=== PATIENT | male | born 1960 | race Caucasian/White ===

== ENCOUNTER 2023-11-15 14:45 | Outpatient (OUT) | payer OTHER, SELFPAY ==
--- NOTE | 2023-11-15 14:52 | XR_ITS ---
The [address] [address] Patient Name: TRENT WOLFE MRN: [id number] date: 1960 Sex: M Assigned Patient Location: [facility] Current Patient Location: [facility] Accession/Order Number: [id number] Exam Date: 11/15/2023 15:13 Report Date: 11/15/2023 16:01 At the request of: REESE VALLEJO Procedure: XR lumbar spine min 4V EXAM: XR lumbar spine min 4V HISTORY: lumbar spine strain COMPARISON: None. TECHNIQUE: 5 views were performed. FINDINGS: Vertebral body heights appear normal. There is moderate multilevel disc space narrowing and osteophytic spurring consistent with degenerative changes. There is grade 1 anterolisthesis at L4-L5 which is likely degenerative in nature. Alignment otherwise appears normal. There is moderate to severe facet arthropathy at L4-L5 and L5-S1. There is no acute fracture or subluxation. Soft tissues appear unremarkable. XR/XR lumbar spine min 4V IMPRESSION: 1. No acute fracture or subluxation. 2. Degenerative changes as described above. 3. Likely degenerative grade 1 anterolisthesis at L4-L5. Electronically authenticated by: MAVERICK SANTOS Date: 11/15/2023 16:01
--- NOTE | 2023-11-15 14:57 | XR_ITS ---
The [address] [address] Patient Name: TRENT WOLFE MRN: [id number] date: 1960 Sex: M Assigned Patient Location: [facility] Current Patient Location: [facility] Accession/Order Number: [id number] Exam Date: 11/15/2023 15:13 Report Date: 11/15/2023 15:44 At the request of: REESE VALLEJO Procedure: XR knee LT 4V EXAM: XR knee LT 4V HISTORY: left knee sprain . The patient fell 2 days ago. COMPARISON: None. TECHNIQUE: 4 views of the left knee were obtained. FINDINGS: There is no evidence of an acute fracture or dislocation. There is mild to moderate narrowing of the medial compartment accompanied by small osteophytes. No osteochondral injury is identified. There is slight narrowing of the patellofemoral joint accompanied by small osteophytes. There is no evidence of a joint effusion. XR/XR knee LT 4V IMPRESSION: Some degenerative changes are present, as described. There is no evidence of an acute fracture or dislocation. There is no evidence of a joint effusion. Direct comparison with a previous study may be helpful in determining the chronicity of these findings. Electronically authenticated by: BEENA MICHAUD Date: 11/15/2023 15:44
== END 2023-11-15 14:46 | disposition home or self-care (01) ==
LOC: RAD 14:47
PROVIDERS: PCP Family Medicine; Visit Provider Nurse Practitioner Family
DX: M25.562 Pain in left knee (principal); S39.012A Strain of muscle, fascia and tendon of lower back, initial encounter
CPT/HCPCS: 72110; 73564

== ENCOUNTER 2023-12-07 06:34 | Outpatient (OUT) | payer OTHER, SELFPAY ==
--- NOTE | 2023-12-07 06:38 | MR_ITS ---
[place] [id number] Patient Name: TRENT WOLFE MRN: [id number] date: 1960 Sex: M Assigned Patient Location: MRI Current Patient Location: MRI Accession/Order Number: [id number] Exam Date: 12/07/2023 06:48 Report Date: 12/07/2023 09:23 At the request of: REESE VALLEJO Procedure: MR shoulder LT wo con EXAM: MR shoulder LT wo con HISTORY: Left Shoulder Strain COMPARISON: None. TECHNIQUE: MRI images obtained with multiple sequences. Noncontrast MRI of the left shoulder. FINDINGS: Normal alignment of the acromioclavicular joint. Subacromial subdeltoid bursal fluid, consistent with bursitis. Os acromiale. Full-thickness tear of the anterior supraspinatus tendon. The tear measures 1.2 cm in width. Minimal retraction measuring 0.8 cm. Infraspinatus is intact. Teres minor is intact. Subscapularis is intact. No labral detachment. No full-thickness chondral loss. Biceps tendon is intact and within the intertubercular groove. No left axillary adenopathy. MR/MR shoulder LT wo con IMPRESSION: 1. Full-thickness tear of the anterior supraspinatus tendon. The tear measures 1.2 cm in width. Minimal retraction measuring 0.8 cm. 2. Subacromial subdeltoid bursal fluid, consistent with bursitis. 3. No labral detachment. No full-thickness chondral loss. Electronically authenticated by: DONNA PEDERSEN Date: 12/07/2023 09:23
--- OUTSIDE RECORDS SUMMARY | 2023-12-07 06:39 | XMS_ITS | CCD ---
Author Name Unknown Address [address] [place] [address] [address] [place] [id number] Organization [facility] Care Team Providers Care Grid Inspector Name Role Phone REQUEST, DR ANNABELLA LISTED Admitting Unavaila ble REQUEST, DR WINCHESTER LISTED Attending Unavaila ble HOY, DR PICKERING Primary Care Unavailable REQUEST, DR WINCHESTER LISTED Consulting Unavaila ble Allergies Allergy Classification Reported Allergen(s) Allergy Type Date of Onset Reaction(s) Facility (1 source) Acetaminophen / oxyCODONE Drug Allergy 07-06-2013 [facility] (1 source) Erythromycin Drug Allergy 07-06-2013 [facility] (1 source) Ibuprofen Drug Allergy [facility] Encounters Encounter Date Encounter Type Care Provider Facility Start: 12-04-2022 End: 12-05-[address] WINCHESTER LISTED REQUEST Facility: Procedures Date Procedure Procedure Detail Performing Clinician Start: 12-04-[address] WINCHESTER L ISTED REQUEST Comment on above: Performed By: #### D ATPSA #### [facility] [address] [address] [address] Sera Mckenna Payers Date Payer Category Payer Self-pay [id number] Unknown [id number] Summary Purpose Family History No Family History Records Found Advance Directives No Advanced Directives Records Found Additional Source Comments (unrecognized sect ion and content) No Status Records Found INFORMATION SOURCE (unrecogn ized section and content) DATE CREATED AUTHOR 12/05/[address] [facility] FOR RECORDS PERTAINING TO PATIENTS WHO ARE OR HAVE BEEN ENROLLED IN A CHEMICAL DEPENDENCY/SUBSTANCEABUSE PROGRAM, SOME INFORMATION MAY BE OMITTED. This clinical summary was aggregated from multiple sources. Caution should be exercised in using it in the provision of clinical care. This summary normalizes information from multiple sources, and as a consequence, information in this document may materially change the coding, format and clinical context of patient data. In addition, data may be omitted in some cases. CLINICAL DECISIONS SHOULD BE BASED ON THE PRIMARY CLINICAL RECORDS. [employer] [facility]. provides no warranty or guarantee of the accuracy or completeness of information in this document.
== END 2023-12-07 06:35 | disposition home or self-care (01) ==
LOC: MRI 06:34
PROVIDERS: PCP Family Medicine; Visit Provider Nurse Practitioner Family
DX: M25.512 Pain in left shoulder (principal); S43.402A Unspecified sprain of left shoulder joint, initial encounter; M75.122 Complete rotator cuff tear or rupture of left shoulder, not specified as traumatic
CPT/HCPCS: 73221

== ENCOUNTER 2023-12-12 13:09 | Outpatient (RCR) | payer OTHER, SELFPAY | END 2024-01-17 13:27 | disposition home or self-care (01) | LOC: PT 13:09 | PROVIDERS: PCP Family Medicine; Visit Provider Nurse Practitioner Family | DX: S83.92XD Sprain of unspecified site of left knee, subsequent encounter (principal); S43.402D Unspecified sprain of left shoulder joint, subsequent encounter; S33.5XXD Sprain of ligaments of lumbar spine, subsequent encounter; M62.838 Other muscle spasm; S20.219D Contusion of unspecified front wall of thorax, subsequent encounter | CPT/HCPCS: 97110; 97161 ==

== ENCOUNTER 2025-02-12 09:11 | Inpatient (IN) | payer OTHER, SELFPAY ==
[2025-02-12] VITALS (32 sets, daily range): BP systolic 138–176; BP diastolic 77–127; PULSE 91–122; TEMP 37–37.6; O2SAT 89–94; BMI 30.1; BMI 30.8
--- OUTSIDE RECORDS SUMMARY | 2025-02-12 09:25 | XMS_ITS | CCD ---
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 Name Role Phone REQUEST, NONE LISTED Admitting Unavaila ble REQUEST, NONE LISTED Attending Unavaila juan PHILIPPE, DR PICKERING Primary Care Unavailable REQUEST, NONE LISTED Consulting Unavaila TARYN Mahan Referring Unavailable Emanuel Philippe MD Primary Care Provider [phone] Barrett Godfrey DO Attending Provider Emanuel Philippe MD Primary Care Provider [phone] Barrett Godfrey DO Attending Provider Barrett Godfrey Admitting Unavailable Barrett Godfrey Attending Unavailable Emanuel Philippe Primary Care Unavailable Barrett Godfrey Admitting Unavailable Barrett Godfrey Attending Unavailable Emanuel Philippe Primary Care Unavailable Barrett Godfrey Admitting Unavailable Barrett Godfrey Attending Unavailable Emanuel Philippe Primary Care Unavailable Barrett Godfrey Admitting Unavailable Barrett Godfrey Attending Unavailable Emanuel Philippe Primary Care Unavailable Albert Godfreyin Tu Admitting Unavailable Barrett Godfrey Attending Unavailable Emanuel Philippe Primary Care Unavailable Allergies Allergy Classification Reported Allergen(s) Allergy Type Date of Onset Reaction(s) Facility (1 source) Acetaminophen / oxyCODONE Drug Allergy 07-06-2013 [facility] Repository (5 sources) Erythromycin Drug Allergy 07-06-2013 [facility] Rep[facility] (1 source) Ibuprofen Drug Allergy [facility] Rep[facility] (5 sources) Ibuprofen; Translations: [ibuprofen] Drug Allergy 11-13-2024 [facility] (1 source) Erythromycin Drug Allergy 01-21-2025 [facility] Repository Medications Current Medications Medication Drug Class(es) Dates Sig (Normalized) Sig (Original) acetaminophen 500 mg oral tablet (1 source) Start: 01-20-2025 take 1 tablet by mouth every six hours as needed for pain Acetaminophen 500 mg tablet Active 500 MG PO Q6H as needed for Pain January 20, 2025 12:00am DO NOT RECONCILE UNTIL DOS 01/21/25 TO BE USED POST OP Calcium-Magnesium tablet (2 sources) Start: 01-15-2025 take 1 tablet by mouth once daily in the morning Calcium-Magnesium tablet Active 1 TAB PO Every morning January 15, 2025 12:00am docusate sodium 100 mg oral capsule (1 source) Start: 01-20-2025 take 1 capsule by mouth twice daily as needed for constipation Docusate Sodium (Colace) 100 mg capsule Active 100 MG PO Twice daily as needed for Constipation 17 08January 20, 2025 12:00am DO NOT RECONCILE UNTIL DOS 01/21/25 TO BE USED POST OP irbesartan 150 mg oral tablet (4 sources) Angiotensin 2 Receptor Allyn Start: 11-13-2024 take 1 tablet by mouth once daily in the morning Irbesartan 150 mg tablet Active 150 MG PO Every morning November 13, 2024 1:00am Ivermectin (2 sources) Antiparasitic, Pediculicide Start: 01-15-2025 ivermectin Active 1 TAB PO As Directed January 15, 2025 12:00am Start: 01-15-2025 ivermectin Act rupesh Daily January 15, 2025 12:00am oxyCODONE hydrochloride 5 mg oral tablet (1 source) Opioid Agonist Start: 01-20-2025 take 1 tablet by mouth every six hours as needed for pain Oxycodone 5 mg tablet Active 5 MG PO Q6H as needed for Pain 17 03January 20, 2025 DO NOT RECONCILE UNTIL DOS 01/21/25 TO BE USED POST OP tribulus hibiscus nettle root tea (2 sources) Start: 01-15-2025 take 1 dose by mouth twice daily tribulus hibiscus nettle root tea Active 1 DOSE PO Twice daily January 15, 2025 12:00am Problems Problem Classification Problem Date Documented Date Episodic/Chronic Essential hypertension (4 sources) Hypertensive disorder; Translations: [Essential (primary) hypertension] 11-13-2024 Chronic Other connective tissue disease (2 sources) Full thickness rotator cuff tear; Translations: [Complete rotator cuff tear or rupture of left shoulder, not specified as traumatic] 11-27-2024 Episodic Residual codes; unclassified (1 source) History of arthroscopic procedure on shoulder; Translations: [Other specified postprocedural states] 01-20-2025 Episodic Sprains and strains (20 sources) Supraspinatus tear; Translations: [Strain of muscle(s) and tendon(s) of the rotator cuff of left shoulder, initial encounter] Onset: 11-24-2024 11-13-2024 Episodic Results Test Name Value Interpretation Reference Range Facility Alanine aminotransferase [En zymatic activity/volume] in Serum or PlasmaOrdered By: Barrett Godfrey on 01-15-2025 ALT [Catalytic activity/Vol] Alanine aminotransferase [Enzymatic activity/volume] in Serum or Plasma 7-52 [facility] Albumin [Mass/volume] in Ser um or Plasma by Bromocresol green (BCG) dye binding methoOrdered By: Barrett Godfrey on 01-15-2025 Albumin BCG dye [Mass/Vol] Albumin [Mass/volume] in Serum or Plasma by Bromocresol green (BCG) dye binding metho 3.5-5.7 [facility] Alkaline phosphatase [Enzyma tic activity/volume] in Serum or PlasmaOrdered By: Barrett Godfrey on 01-15-2025 ALP [Catalytic activity/Vol] Alkaline phosphatase [Enzymatic activity/volume] in Serum or Plasma 34-104 [facility] Aspartate aminotransferase [ Enzymatic activity/volume] in Serum or PlasmaOrdered By: Barrett Godfrey on 01-15-2025 AST [Catalytic activity/Vol] Aspartate aminotransferase [Enzymatic activity/volume] in Serum or Plasma 13-39 [facility] Basophils Auto (Bld) [#/Vol] Ordered By: Barrett Godfrey on 01-15-2025 Basophils (Bld) [#/Vol] Automated basoph il count 0.0-0.2 [facility] Basophils/100 WBC Auto (Bld) Ordered By: Barrett Godfrey on 01-15-2025 Basophils/100 WBC (Bld) Automated basophil % . [facility] Bilirubin.total [Mass/volume ] in Serum or PlasmaOrdered By: Barrett Godfrey on 01-15-2025 Bilirubin [Mass/Vol] Bilirubin.total [Mass/volume] in Serum or Plasma 0.3-1.0 [facility] CMP with reflex to A1Con Albumin [Mass/Vol] 4.8 g/dL Normal 3.5-5.7 [facility] Comment on above: Performed By: #### C BC, CMP wRFX A1C #### [facility] [address] Albumin/Globulin [Mass ratio] 2.3 {ratio} Normal [facility] Comment on above: Performed By: #### C BC, CMP wRFX A1C #### [facility] [address] ALP [Catalytic activity/Vol] 39 U/L Normal 34-104 [facility] Comment on above: Result Comment: PERF ORMED BY: [place] [address] PATHOLOGIST [employer] ELADIO CARLSON M.D. Performed By: #### C BC, CMP wRFX A1C #### [address] ALT [Catalytic activity/Vol] 23 U/L Normal 7-52 [facility] Comment on above: Performed By: #### C BC, CMP wRFX A1C #### [facility] [address] [place] [id number] [facility] Anion gap [Moles/Vol] 11.5 mmol/L Normal 6.0-15.0 [facility] Comment on above: Performed By: #### C BC, CMP wRFX A1C #### [facility] [address] [place] [id number] [facility] AST [Catalytic activity/Vol] 23 U/L Normal 13-39 [facility] Comment on above: Performed By: #### C BC, CMP wRFX A1C #### [facility] [address] [place] [address] [facility] Bilirubin [Mass/Vol] 0.6 mg/dL Normal 0.3-1.0 [facility] Comment on above: Performed By: #### C BC, CMP wRFX A1C #### [address] Calcium [Mass/Vol] 9.2 mg/dL Normal 8.6-10.3 [facility] Comment on above: Performed By: #### C BC, CMP wRFX A1C #### [place] [address] [place] Chloride [Moles/Vol] 105 mmol/L Normal 98-107 [facility] Comment on above: Performed By: #### C BC, CMP wRFX A1C #### [address] CO2 [Moles/Vol] 26.0 mmol/L Normal 21.0-31.0 [facility] Comment on above: Performed By: #### C BC, CMP wRFX A1C #### [address] Creatinine [Mass/Vol] 0.86 mg/dL Normal 0.70-1.30 [facility] Comment on above: Performed By: #### C BC, CMP wRFX A1C #### [place] [address] [place] GFR/1.73 sq M.predicted MDRD (S/P/Bld) [Vol rate/Area] mL/min/{1.73_m2} Normal [facility] Comment on above: Performed By: #### C BC, CMP wRFX A1C #### [address] Globulin (S) [Mass/Vol] 2.1 g/dL Normal [facility] Comment on above: Performed By: #### C BC, CMP wRFX A1C #### [address] Glucose [Mass/Vol] 98 mg/dL Normal 70-100 [facility] Comment on above: Performed By: #### C BC, CMP wRFX A1C #### [place] [address] [place] Potassium [Moles/Vol] 4.5 mmol/L Normal 3.5-5.1 [facility] Comment on above: Performed By: #### C BC, CMP wRFX A1C #### [facility] [address] Protein [Mass/Vol] 6.9 g/dL Normal 6.4-8.9 [facility] Comment on above: Performed By: #### C BC, CMP wRFX A1C #### [address] Sodium [Moles/Vol] 138 mmol/L Normal 136-145 [facility] Comment on above: Performed By: #### C BC, CMP wRFX A1C #### [address] Urea nitrogen [Mass/Vol] 23 mg/dL Normal 7-25 [facility] Comment on above: Performed By: #### C BC, CMP wRFX A1C #### [address] Calcium [Mass/volume] in Ser um or PlasmaOrdered By: Barrett Godfrey on 01-15-2025 Calcium [Mass/Vol] Calcium [Mass/volume] in Serum or Plasma 8.6-10.3 [facility] Carbon dioxide, total [Moles /volume] in Serum or PlasmaOrdered By: Barrett Godfrey on 01-15-2025 CO2 [Moles/Vol] Carbon dioxide, total [Moles/volume] in Serum or Plasma 21.0-31.0 [facility] Chloride [Moles/volume] in S cody or PlasmaOrdered By: Barrett Godfrey on 01-15-2025 Chloride [Moles/Vol] Chloride [Moles/volume] in Serum or Plasma 98-107 [facility] Complete Blood Count Auto Di ffon 01-15-2025 Basophils (Bld) [#/Vol] 0.1 10*3/uL Normal 0.0-0.2 [facility] Comment on above: Result Comment: PERF ORMED BY: [place] [address] PATHOLOGIST [employer] ELADIO CARLSON M.D. Performed By: #### C BC, CMP wRFX A1C #### [address] Basophils/100 WBC (Bld) 1.3 % Normal . [facility] Comment on above: Performed By: #### C BC, CMP wRFX A1C #### [address] Eosinophils (Bld) [#/Vol] 0.2 10*3/uL Normal 0.0-0.45 [facility] Comment on above: Performed By: #### C BC, CMP wRFX A1C #### [address] Eosinophils/100 WBC (Bld) 2.6 % Normal . [facility] Comment on above: Performed By: #### C BC, CMP wRFX A1C #### [address] Erythrocyte distribution width (RBC) [Ratio] 13.4 % Normal 12.0-14.8 [facility] Comment on above: Performed By: #### C BC, CMP wRFX A1C #### [address] Hematocrit (Bld) [Volume fraction] 46.8 % Normal 38.8-50.0 [facility] Comment on above: Performed By: #### C BC, CMP wRFX A1C #### [address] Hemoglobin (Bld) [Mass/Vol] 16.1 g/dL Normal 13.0-17.0 [facility] Comment on above: Performed By: #### C BC, CMP wRFX A1C #### [address] Lymphocytes (Bld) [#/Vol] 1.7 10*3/uL Normal 1.00-4.8 [facility] Comment on above: Performed By: #### C BC, CMP wRFX A1C #### [facility] [address] [place] [address] [place] Lymphocytes/100 WBC (Bld) 28.2 % Normal . [facility] Comment on above: Performed By: #### C BC, CMP wRFX A1C #### [facility] [address] MCH (RBC) [Entitic mass] 31.8 pg Normal 27.5-35.2 [facility] Comment on above: Performed By: #### C BC, CMP wRFX A1C #### [facility] [address] MCV (RBC) [Entitic vol] 92.4 fL Normal 83.5-101 [facility] Comment on above: Performed By: #### C BC, CMP wRFX A1C #### [address] Mean Corpuscular HGB Conc 34.4 g/dL Normal 32.5-35.6 [facility] Comment on above: Performed By: #### C BC, CMP wRFX A1C #### [place] [address] [place] Monocytes (Bld) [#/Vol] 0.6 10*3/uL Normal 0.0-0.8 [facility] Comment on above: Performed By: #### C BC, CMP wRFX A1C #### [place] [address] [place] Monocytes/100 WBC (Bld) 10.2 % Normal . [facility] Comment on above: Performed By: #### C BC, CMP wRFX A1C #### [facility] [address] [place] [address] [place] Neutrophils (Bld) [#/Vol] 3.4 10*3/uL Normal 1.8-7.7 [facility] Comment on above: Performed By: #### C BC, CMP wRFX A1C #### [place] [address] [place] Neutrophils/100 WBC (Bld) 57.7 % Normal . [facility] Comment on above: Performed By: #### C BC, CMP wRFX A1C #### [facility] [address] NRBC% 0.1 /100{WBC} Normal 0-0.5 [facility] Comment on above: Performed By: #### C BC, CMP wRFX A1C #### [facility] [address] Platelet mean volume (Bld) [Entitic vol] 8.3 fL Normal 6.6-10.1 [facility] Comment on above: Performed By: #### C BC, CMP wRFX A1C #### [facility] [address] [place] [address] [place] Platelets (Bld) [#/Vol] 177 10*3/uL Normal 150-450 [facility] Comment on above: Performed By: #### C BC, CMP wRFX A1C #### [facility] [address] [place] [address] [place] RBC (Bld) [#/Vol] 5.07 10*6/uL Normal 3.90-5.60 [facility] Comment on above: Performed By: #### C BC, CMP wRFX A1C #### [facility] [address] [place] [address] WBC (Bld) [#/Vol] 6.0 10*3/uL Normal 4.1-10.5 [facility] Comment on above: Performed By: #### C BC, CMP wRFX A1C #### [place] [address] [place] Creatinine [Mass/volume] in Serum or PlasmaOrdered By: Barrett Godfrey on 01-15-2025 Creatinine [Mass/Vol] Creatinine [Mass/volume] in Serum or Plasma 0.70-1.30 [facility] ECG 12 lead ECGon 01-15-2025 ECG 12 lead ECG [facility] Main [place] [address] [place] [address] Electrocardiograph Report Signed Patient: Darien Wilcox MR#: [id number] : 1960 Acct:[id number] Age/Sex: 64 / M ADM Date: 01/15/25 Loc: PS Room: Type: [facility] Attending Dr: Barrett Godfrey DO Ordering Provider: Barrett Godfrey DO Date of Service: 01/15/25 ECG/ECG 12 lead ECG: Pre op Copies to: Test Reason : Blood Pressure : */* mmHG Vent. Rate : 79 BPM Atrial Rate : 79 BPM P-R Int : 170 ms QRS Dur : 94 ms QT Int : 368 ms P-R-T Axes : 44 32 34 degrees QTcB Int : 421 ms Normal sinus rhythm Normal ECG No previous ECGs available Confirmed by SIMON SAWANT MD ([id number]) on 01/15/2025 11:00:40 AM Referred By: Electronically Signed By: SIMON SAWANT MD Transcribed By: MUS Signed By Simon Sawant MD 0 01/15/25 1100 Normal [facility] Eosinophils Auto (Bld) [#/Vo l]Ordered By: Barrett Godfrey on 01-15-2025 Eosinophils (Bld) [#/Vol] Automated eosinophil count 0.0-0.45 [facility] Eosinophils/100 WBC Auto (Bl d)Ordered By: Barrett Godfrey on 01-15-2025 Eosinophils/100 WBC (Bld) Automated eosinophil % . [facility] Erythrocyte distribution wid th Auto (RBC) [Ratio]Ordered By: Barrett Godfrey on 01-15-2025 Erythrocyte distribution width (RBC) [Ratio] Erythrocyte distribution width [Ratio] by Automated count 12.0-14.8 [facility] Globulin Calc (S) [Mass/Vol] Ordered By: Barrett Godfrey on 01-15-2025 Globulin (S) [Mass/Vol] Serum globulin measurement by calculation (mass/volume) [facility] Glucose [Mass/volume] in Ser um or PlasmaOrdered By: Barrett Godfrey on 01-15-2025 Glucose [Mass/Vol] Glucose [Mass/volume] in Serum or Plasma 70-100 [facility] Hematocrit Auto (Bld) [Volum e fraction]Ordered By: Barrett Godfrey on 01-15-2025 Hematocrit (Bld) [Volume fraction] Hematocrit [Volume Fraction] of Blood by Automated count 38.8-50.0 [facility] Hemoglobin [Mass/volume] in BloodOrdered By: Barrett Godfrey on 01-15-2025 Hemoglobin (Bld) [Mass/Vol] Hemoglobin [Mass/volume] in Blood 13.0-17.0 [facility] Leukocytes [#/volume] correc lianne for nucleated erythrocytes in Blood by Automated counOrdered By: Barrett Godfrey on 01-15-2025 WBC corrected for nucl RBC Auto (Bld) [#/Vol] Leukocytes [#/volume] corrected for nucleated erythrocytes in Blood by Automated coun 4.1-10.5 [facility] Lymphocytes Auto (Bld) [#/Vo l]Ordered By: Barrett Godfrey on 01-15-2025 Lymphocytes (Bld) [#/Vol] Lymphocytes [#/volume] in Blood by Automated count 1.00-4.8 [facility] Lymphocytes/100 WBC Auto (Bl d)Ordered By: Barrett Godfrey on 01-15-2025 Lymphocytes/100 WBC (Bld) Lymphocytes/100 leukocytes in Blood by Automated count . [facility] MCH Auto (RBC) [Entitic mass ]Ordered By: Barrett Godfrey on 01-15-2025 MCH (RBC) [Entitic mass] MCH [Entitic ma ss] by Automated count 27.5-35.2 [facility] MCHC Auto (RBC) [Mass/Vol]Or dered By: Barrett Godfrey on 01-15-2025 MCHC (RBC) [Mass/Vol] MCHC [Mass/volume] by Automated count 32.5-35.6 [facility] MCV Auto (RBC) [Entitic vol] Ordered By: Barrett Godfrey on 01-15-2025 MCV (RBC) [Entitic vol] MCV [Entitic vol ume] by Automated count 83.5-101 [facility] Monocytes Auto (Bld) [#/Vol] Ordered By: Barrett Godfrey on 01-15-2025 Monocytes (Bld) [#/Vol] Automated blood monocyte count 0.0-0.8 [facility] Monocytes/100 WBC Auto (Bld) Ordered By: Barrett Godfrey on 01-15-2025 Monocytes/100 WBC (Bld) Automated monocyte % . [facility] Neutrophils Auto (Bld) [#/Vo l]Ordered By: Barrett Godfrey on 01-15-2025 Neutrophils (Bld) [#/Vol] Neutrophils [#/volume] in Blood by Automated count 1.8-7.7 [facility] Neutrophils/100 WBC Auto (Bl d)Ordered By: Barrett Godfrey on 01-15-2025 Neutrophils/100 WBC (Bld) Automated neutrophil % . [facility] No Panel InformationOrdered By: Barrett Godfrey on 01-15-2025 Estimated GFR (CKD-EPI) > 60.0 mL/Min [facility] Creatinine Clearance (Chem N/A [facility] Nucleated erythrocytes [Pres ence] in Blood by Automated countOrdered By: Barrett Godfrey on 01-15-2025 Nucleated RBC Auto Ql (Bld) Nucleated erythrocytes [Presence] in Blood by Automated count 0-0.5 [facility] Platelet mean volume Auto (B ld) [Entitic vol]Ordered By: Barrett Godfrey on 01-15-2025 Platelet mean volume (Bld) [Entitic vol] Platelet mean volume [Entitic volume] in Blood by Automated count 6.6-10.1 [facility] Platelets Auto (Bld) [#/Vol] Ordered By: Barrett Godfrey on 01-15-2025 Platelets (Bld) [#/Vol] Platelets [#/vol ume] in Blood by Automated count 150-450 [facility] Potassium [Moles/volume] in Serum or PlasmaOrdered By: Barrett Godfrey on 01-15-2025 Potassium [Moles/Vol] Potassium [Moles/volume] in Serum or Plasma 3.5-5.1 [facility] Protein [Mass/volume] in Ser um or PlasmaOrdered By: Barrett Godfrey on 01-15-2025 Protein [Mass/Vol] Protein [Mass/volume] in Serum or Plasma 6.4-8.9 [facility] RBC Auto (Bld) [#/Vol]Ordere d By: Barrett Godfrey on 01-15-2025 RBC (Bld) [#/Vol] Erythrocytes [#/volume] in Blood by Automated count 3.90-5.60 [facility] Serum or plasma albumin/glob ulin mass ratioOrdered By: Barrett Godfrey on 01-15-2025 Albumin/Globulin [Mass ratio] Serum or plasma albumin/globulin mass ratio [facility] Serum or plasma anion gap de terminationOrdered By: Barrett Godfrey on 01-15-2025 Anion gap [Moles/Vol] Serum or plasma anion gap determination 6.0-15.0 [facility] Sodium [Moles/volume] in Ser um or PlasmaOrdered By: Barrett Godfrey on 01-15-2025 Sodium [Moles/Vol] Sodium [Moles/volume] in Serum or Plasma 136-145 [facility] Urea nitrogen [Mass/volume] in Serum or PlasmaOrdered By: Barrett Godfrey on 01-15-2025 Urea nitrogen [Mass/Vol] Urea nitrogen [Mass/volume] in Serum or Plasma 7-25 [facility] WBC Auto (Bld) [#/Vol]Ordere d By: Barrett Godfrey on 01-15-2025 WBC (Bld) [#/Vol] Leukocytes [#/volume] in Blood by Automated count 4.1-10.5 [facility] MR shoulder LT wo conon 10-30 [place] [address] MRI Report Signed Patient: Darien Wilcox MR#: [id number] : 1960 Acct:[id number] Age/Sex: 64 / M ADM Date: 11/24/24 Loc: [facility] Room: Type: [facility] Attending Dr: Barrett Godfrey DO Copies to: Barrett Godfrey DO Ordering Provider: Barrett Godfrey DO Date of Service: 11/24/24 MR/MR shoulder LT wo con: S46.012A - Strain of muscle(s) and tendon(s) of the rotat... EXAMINATION: MRI OF THE LEFT SHOULDER CLINICAL HISTORY: Muscle strain. COMPARISON: Left shoulder series 11/13/2024 TECHNIQUE: Multiecho, multiplanar imaging was performed with use of an extremity coil. No contrast was administered. FINDINGS: Bones/Joints: Minimal joint fluid. Subacromial/subdelto id bursitis. Inferior glenohumeral ligament appears unremarkable. Mild degenerative changes of the AC joint. Mild degenerative changes of the glenohumeral joint. No bone marrow edema or fracture is noted. Labrum: No definitive tear is noted. Biceps tendon: Situated within the bicipital groove with small amount of surrounding fluid. No biceps tendon tear is seen. The tendon appears to be seen to the level of the labrum. Supraspinatus: Full-thickness tear involving the anterior fibers of the musculotendinous junction approximately 1 cm from the greater tubercle with associated tendinosis. There appears to be atrophy of the supraspinatus suggestive of a chronic process. Infraspinatus: Normal Teres Minor: Normal Subscapularis: Normal MR/MR shoulder LT wo con IMPRESSION: MINIMAL JOINT FLUID WITH SUBACROMIAL/SUBDELTO ID BURSITIS AND MILD DEGENERATIVE CHANGES OF THE AC AND GLENOHUMERAL JOINTS. THERE APPEARS TO BE A FULL-THICKNESS TEAR OF THE ANTERIOR SUPRASPINATUS TENDON AT THE LEVEL OF THE MUSCULOTENDINOUS JUNCTION APPROXIMATELY 1 CM FROM THE GREATER TUBERCLE. THERE IS ASSOCIATED MUSCLE ATROPHY AND TENDINOSIS SUGGESTING A CHRONIC PROCESS. Impression dictated by: Rojas Jama Jr., D.OGalo11/24/2024 3:34 PM Dictation Location: [place] [address] Transcribed By: [facility] 11/24/24 1534 Dictated By: Rojas Jama Jr, DO 11/24/24 1529 Signed By: 11/24/24 1534 Normal [facility] Magnetic resonance imaging r eportOrdered By: Rojas Jama on 11-24-2024 Study report [facility] [place] [address] MRI Report Signed Patient: Darien Wilcox MR#: [id number] : 1960 Acct:[id number] Age/Sex: 64 / M ADM Date: 5 Loc: [facility] Room: Type: [facility] Attending Dr: Barrett Godfrey DO Copies to: Barrett Godfrey DO~ Ordering Provider: Barrett Godfrey DO Date of Service: 11/24/24 MR/MR shoulder LT wo con: S46.012A - Strain of muscle(s) and tendon(s) of the rotat... EXAMINATION: MRI OF THE LEFT SHOULDER CLINICAL HISTORY: Muscle strain. COMPARISON: Left shoulder series 11/13/2024 TECHNIQUE: Multiecho, multiplanar imaging was performed with use of an extremity coil. No contrast was administered. FINDINGS: Bones/Joints: Minimal joint fluid. Subacromial/subdelto id bursitis. Inferior glenohumeral ligament appears unremarkable. Mild degenerative changes of the ACjoint. Mild degenerative changes of the glenohumeral joint. No bone marrow edema or fracture is noted. Labrum: No definitive tear is noted. Biceps tendon: Situated within the bicipital groove with small amount of surrounding fluid. No biceps tendon tear is seen. The tendon appears to be seen to the level of the labrum. Supraspinatus: Full-thickness tear involving the anterior fibers of the musculotendinous junction approximately 1 cm from the greater tubercle with associated tendinosis. There appears to be atrophy of the supraspinatus suggestive of a chronic process. Infraspinatus: Normal Teres Minor: Normal Subscapularis: Normal MR/MR shoulder LT wo con IMPRESSION: MINIMAL JOINT FLUID WITH SUBACROMIAL/SUBDELTO ID BURSITIS AND MILD DEGENERATIVE CHANGES OF THE AC AND GLENOHUMERAL JOINTS. THERE APPEARS TO BE A FULL-THICKNESS TEAR OF THE ANTERIOR SUPRASPINATUS TENDON AT THE LEVEL OF THE MUSCULOTENDINOUS JUNCTION APPROXIMATELY 1 CM FROM THE GREATER TUBERCLE. THERE IS ASSOCIATED MUSCLE ATROPHY AND TENDINOSIS SUGGESTING A CHRONIC PROCESS. Impression dictated by: Rojas Jama Jr., D.OGalo11/24/2024 3:34 PM Dictation Location: [place] [address] Transcribed By: [facility] 11/24/24 1534 Dictated By: Rojas Jama Jr, DO 11/24/24 1529 Signed By: 11/24/24 1534 [facility] X-ray reportOrdered By: Tyshawn Jama on 11-13-2024 Study report [facility] [address] [place] [address] XRay Report Signed Patient: Darien Wilcox MR#: [id number] : 1960 Acct:[id number] Age/Sex: 64 / M ADM Date: 5 Loc: [facility] Room: Type: [facility] CLI Attending Dr: Barrett Godfrey DO Copies to: Barrett Godfrey DO~ Ordering Provider: Barrett Godfrey DO Date of Service: 11/13/24 XR/XR shoulder LT min 2V*: S46.012A - Strain of muscle(s) and tendon(s) of the rotat... LEFT SHOULDER - - 4 views CLINICAL HISTORY: Left shoulder pain for one month. COMPARISON: None FINDINGS: Mild degenerative changes of the AC and glenohumeral joints without acute bony process. XR/XR shoulder LT min 2V* IMPRESSION: MILD DEGENERATIVE CHANGES OF THE LEFT SHOULDER WITHOUT ACUTE BONY PROCESS. Impression dictated by: Rojas Jama Jr., D.OGalo11/13/2024 3:42 PM Dictation Location: [place] [address] Transcribed By: [facility] 11/13/24 1542 Dictated By: Rojas Jama Jr, DO 11/13/24 1541 Signed By: 11/13/24 1542 [facility] XR shoulder LT min 2V*on XR shoulder LT min 2V* [facility] [address] [place] [id number] XRay Report Signed Patient: Darien Wilcox MR#: [id number] : 1960 Acct:[id number] Age/Sex: 64 / M ADM Date: 11/13/24 Loc: [facility] Room: Type: [facility] CLI Attending Dr: Barrett Godfrey DO Copies to: Barrett Godfrey DO Ordering Provider: Barrett Godfrey DO Date of Service: 11/13/24 XR/XR shoulder LT min 2V*: S46.012A - Strain of muscle(s) and tendon(s) of the rotat... LEFT SHOULDER - - 4 views CLINICAL HISTORY: Left shoulder pain for one month. COMPARISON: None FINDINGS: Mild degenerative changes of the AC and glenohumeral joints without acute bony process. XR/XR shoulder LT min 2V* IMPRESSION: MILD DEGENERATIVE CHANGES OF THE LEFT SHOULDER WITHOUT ACUTE BONY PROCESS. Impression dictated by: Rojas Jama Jr., DGaloOGalo11/13/2024 3:42 PM Dictation Location: [place] [address] Transcribed By: [facility] 11/13/24 1542 Dictated By: Rojas Jama Jr, DO 11/13/24 1541 Signed By: 11/13/24 1542 Normal [facility] XR SHOULDER LT MIN 2 VWSon 1 12-01-2023 XR SHOULDER LT MIN 2 VWS XR SHOULDER LT MIN 2 VWS XR SHOULDER LT MIN 2 VWS Clinical history:Left shoulder pain, unspecified chronicity Comparison: None. Findings: Acromioclavicular and glenohumeral joint degenerative change. No acute processes fracture or dislocation. Impression: Degenerative change without evidence of acute osseous abnormality. Finalized by Frank Choudhary MD on 09/30/2024 5:12 PM Normal [facility] Vital Signs Date Time Vital Sign Value Performing Clinician Alcirai keisha 01-21-2025 13:40-0400 Diastolic blood pressure 78 mm[Hg] Emanuel Philippe MD Work Phone: [facility] 01-21-2025 13:40-0400 Heart rate 88 /min Emanuel Philippe MD Work Phone: [facility] 01-21-2025 13:40-0400 Respiratory rate 16 /min Emanuel Philippe MD Work Phone: [facility] 01-21-2025 13:40-0400 SaO2% (BldA) [Mass fraction] 96 % Emanuel Philippe MD Work Phone: [facility] 01-21-2025 13:40-0400 Systolic blood pressure 138 mm[Hg] Emanuel Philippe MD Work Phone: [facility] 01-21-2025 12:04-0400 Body temperature 97.7 [degF] Emanuel Philippe MD Work Phone: [facility] 01-21-2025 12:04-0400 Inhaled oxygen flow rate 8 L/min Emanuel Philippe MD Work Phone: [facility] 01-21-2025 09:04-0400 Body height 177.8 cm Emanuel Pihlippe MD Work Phone: [facility] 01-21-2025 09:04-0400 Body weight 95.25 kg Emanuel Philippe MD Work Phone: [facility] 01-15-2025 09:16-0400 Body height 177.8 cm Emanuel Philippe MD Work Phone: [facility] 01-15-2025 09:16-0400 Body mass index (BMI) [Ratio] 29.7 kg/m2 Emanuel Philippe MD Work Phone: [facility] 01-15-2025 09:16-0400 Body weight 93.89 kg Emanuel Philippe MD Work Phone: [facility] 11-13-2024 10:30-0500 Body height 179.07 cm Emanuel Philippe MD Work Phone: [facility] 11-13-2024 10:30-0500 Body mass index (BMI) [Ratio] 29.2 kg/m2 Emanuel Philippe MD Work Phone: [facility] 11-13-2024 10:30-0500 Body weight 93.89 kg Emanuel Philippe MD Work Phone: [facility] Encounters Encounter Date Encounter Type Care Provider Facility Start: 01-23-2025 ambulatory Barrett Godfrey Facility :[facility] Start: 01-21-2025 Non-patient / Non-visit Tanna Philippe MD Work Phone: [facility] Work Phone: Start: 01-21-2025 End: 01-21-2025 Admission to same day surgery center Emanuel Philippe MD Work Phone: [facility] [place] Start: 01-21-2025 End: 01-21-2025 ambulatory Emanuel Philippe MD Work Phone: [facility] Work Phone: Start: 01-15-2025 End: 01-15-2025 Encounter for other preprocedural examination Emanuel Philippe MD Work Phone: [facility] Start: 01-15-2025 End: 01-15-2025 Patient encounter procedure Emanuel Philippe MD Work Phone: [facility] Work Phone: Start: 01-15-2025 End: 01-15-2025 Patient encounter procedure Emanuel Philippe MD Work Phone: [facility]Pre-Surgical Testing Work Phone: Start: 01-15-2025 End: 01-15-2025 ambulatory Emanuel Philippe MD Work Phone: [facility] Work Phone: Start: 01-15-2025 Encounter for preprocedural laboratory examination Barrett Godfrey [facility] Start: 01-14-2025 Patient encounter status Rogers Philippe MD Work Phone: [facility] Start: 12-18-2024 End: 12-18-2024 Patient encounter procedure Emanuel Philippe MD Work Phone: [facility] Work Phone: Start: 11-24-2024 End: 11-24-2024 ambulatory Emanuel Philippe MD Work Phone: [facility] Work Phone: Start: 11-24-2024 End: 11-24-2024 Patient encounter procedure Emanuel Philippe MD Work Phone: [facility] [address] [facility] Work Phone: Start: 11-13-2024 End: 11-13-2024 ambulatory Emanuel Philippe MD Work Phone: [facility] Work Phone: Start: 11-13-2024 End: 11-13-2024 Patient encounter procedure Emanuel Philippe MD Work Phone: [facility] Work Phone: Start: 09-30-2024 ambulatory TARYN PHAMYORDY [facility] Start: 12-04-2022 End: 12-05-[address] WINCHESTER LISTED REQUEST Facility: Procedures Date Procedure Procedure Detail Performing Clinician Start: 01-21-2025 OR Shoulder Scope RCR/Biceps Tendon (Left) Emanuel Philippe MD Work Phone: Start: 11-24-2024 MRI of left shoulder Do veronica Philippe MD Work Phone: Start: 11-13-2024 Plain X-ray of left shoulder Emanuel Philippe MD Work Phone: Start: 12-04-[address] WINCHESTER L ISTED REQUEST Comment on above: Performed By: #### D ATPSA #### [facility] [address] [place] [address] Dr. Sera Mckenna History of appendectomy History of appendectomy Emanuel Philippe MD Work Phone: History of operative procedure on knee History of medial meniscus repair of right knee Emanuel Philippe MD Work Phone: History of repair of musculotendinous cuff of shoulder History of repair of right rotator cuff Emanuel Philippe MD Work Phone: Plan of Treatment Date Care Activity Detail Author Start: 01-21-2025 End: 01-21-2025 [facility] MR Shoulder - left W O contrast [facility] Patient Education Know your Meds [facility] Work Phone: Payers Date Payer Category Payer Unknown [id number] 2024 Self-pay 1959 Self-pay [id number] Unknown [id number] Unknown [id number] [id number] Unknown [id number] 2.16.8 [id number] Unknown [id number] 2.16.8 [id number] Unknown [id number] 2.16.8 [id number] Unknown [id number] 2.16.8 [id number] Social History Date Type Detail Facility Tobacco smoking stat us NHIS Unknown if ever smoked [facility] Work Phone: Start: 11-14-2024 End: 01-21-2025 Sex Male (finding) [facility] Start: 1960 Sex Assigned At Male F [facility] Start: 11-25-2024 Sex Patient sex un known (finding) [facility] Start: 01-15-2025 End: 01-21-2025 Tobacco smoking status NHIS Current some day smoker [facility] Goals Date Patient Goal Desired Activity /State Evaluation note 11-13-2024 Note Date & Type Note Facility 11-13-2024 Evaluation note Diagnosis Onset Date Resolution Rupture of left supraspinatus tendon acute October 10:06am Unspecified sprain of left shoulder joint, initial encounter acute November 13, 2024 10:06am [facility] Work Phone: Evaluation note 11-13-2024 Note Date & Type Note Facility 11-13-2024 Evaluation note Diagnosis Onset Date Resolution Rupture of left supraspinatus tendon acute October 10:06am Unspecified sprain of left shoulder joint, initial encounter acute November 13, 2024 10:06am Rupture of left supraspinatus tendon acute December 182024 12:49pm Unspecified sprain of left shoulder joint, initial encounter acute December 18, 2024 12:49pm Pre-op exam acute January 15, 025 9:08am Rupture of left supraspinatus tendon acute January 15, 2025 9:08am Unspecified sprain of left shoulder joint, initial encounter acute January 15 9:08am [facility] Work Phone: Hospital Discharge instructions Note Date & Type Note Facility Hospital Discharge instructions Additional Instructions POSTOPERATIVE INSTRUCTIONS FOR ROTATOR CUFF REPAIR Barrett Godfrey DO Orthopedic Surgeon [facility] GENERAL INSTRUCTIONS: Use ice packs to the shoulder as much as you can tolerate (30 minutes on/30 minutes off) over the first 48-72 hours post-operatively. DO NOT apply ice directly to the skin. Always place a towel between the ice pack and skin. Low grade temperatures are common after surgery. Please notify the office if your temperature exceeds 101.5 degrees Fahrenheit. DO NOT make critical decisions or sign legal papers for the first 24 hours after surgery or while taking pain medication. MEDICATIONS AND DIET: You may resume all pre-operative medications unless otherwise specified. Only take pain medication as prescribed, as needed. We encourage ambulation to help prevent blood clots from developing in your legs You should take pain medication with food. It is not uncommon to have nausea or an upset stomach after surgery. Medication refills require a 48 hour notice; no exceptions will be made. NO REFILLS will be authorized over the weekend. Do not take extra Tylenol while taking prescription pain medication unless otherwise specified. If you have a reaction to your medications, stop taking them and call the office immediately. If you develop a significant rash, or have trouble breathing, call 911 or go immediately to the nearest emergency room. ACTIVITY: Your operative extremity is in shoulder sling. Please wear this as all times. You may remove this for bathing purposes. You may also come out of the sling 2-3 times per day to perform gentle pendulum exercises as well as gentle movement of your elbow. Do not actively move your shoulder otherwise. Wear the sling while sleeping at night . You are non-weightbearing on your operative arm. DRESSING/BANDAGES: Your surgical bandage may show some drainage over the first 24-48 hours following surgery. Keep steri-strips intact if they are present If your bandage becomes saturated, please notify the office. Your shoulder dressing is to be left on for the first 72 hours after surgery. On the third day after surgery, you may remove your dressing and cover with band-aids as needed DO NOT soak the incision. You may shower once the bandage is off. Allow water to wash over the incisions. Do not scrub the area DO NOT submerge the incision in a bath, hot tub, swimming pool, or any other body of water for the first 4 weeks following surgery. FOLLOW UP: Your first post-operative appointment should already be scheduled for you. If you do not already have a post-operative appointment, our office will contact you to schedule one. You should be seen in the office two weeks following your surgery unless otherwise specified. If you notice any increasing swelling, wound redness, or drainage, please contact our office immediately. Barrett Godfrey DO Orthopedic Surgeon [facility] Office: [address] [place] [id number] Office number: [phone] [facility] Work Phone: Summary Purpose Family History No Family History Records Found Relationship Condition Age at Onset Recorded Date/T shannon Not Specified Adopted Unknown Unknown family medical history Unknown Advance Directives No Advanced Directives Records Found Advance Directive Response Recorded Date/ Time Advance Directives No November 11, 2024 11:22am Advance Directive Response Recorded Date/ Time Advance Directives No January 13 025 12:51pm Chief Complaint and Reason for Visit Chief Complaint Admit Date [facility] DOI 09/30/24 LT SHOULDER INJURY 2024 10:06am S46.012A S42.402A November 13, 2024 1 0:44am Reason for Visit Admit Date Rupture of left supraspinatus tendon Oct 2024 10:06am Unspecified sprain of left s houlder joint, initial encounter November 13, 2024 10:06am Chief Complaint Admit Date [facility] DOI 09/30/24 LT SHOULDER INJURY 2024 10:06am S46.012A S42.402A November 13, 2024 1 0:44am S46.012A November 24, 2024 1 2:54pm Chief Complaint Admit Date [facility] DOI 09/30/24 LT SHOULDER INJURY 2024 10:06am S46.012A S42.402A November 13, 2024 1 0:44am S46.012A November 24, 2024 1 2:54pm MRI RESULTS [facility] December 18, 2024 12:49pm Shoulder pain January 15, 2025 8:0 7am [facility] & P LEFT SHOULDER ARTHROSCOPY 01-21-25 January 15, 2025 9:08am Reason for Visit Admit Date Rupture of left supraspinatus tendon Sudheer uary 2024 10:06am Unspecified sprain of left s houlder joint, initial encounter November 13, 2024 10:06am Rupture of left supraspinatus tendon Feb ruary 2024 12:49pm Unspecified sprain of left s houlder joint, initial encounter December 18, 2024 12:49pm Pre-op exam January 15, 2025 9:0 8am Rupture of left supraspinatus tendon Mar 2024 9:08am Unspecified sprain of left s houlder joint, initial encounter January 15, 2025 9:08am Chief Complaint Admit Date [facility] DOI 09/30/24 LT SHOULDER INJURY Janua ry 2024 10:06am S46.012A S42.402A November 13, 2024 1 0:44am S46.012A November 24, 2024 1 2:54pm MRI RESULTS [facility] December 18, 2024 12:49pm Shoulder pain January 15, 2025 8:0 7am H & P LEFT SHOULDER ARTHROSCOPY 01-21-25 January 15, 2025 9:08am Shoulder pain January 21, 2025 8:3 7am Shoulder pain January 21, 2025 12: 22pm Additional Source Comments (unrecognized sect ion and content) No Status Records FoundNo Status Records FoundNo Status Records Found INFORMATION SOURCE (unrecogn ized section and content) DATE CREATED AUTHOR 12/05/[address] [facility] DATE CREATED AUTHOR AUTHOR'S ORGANIZ ATION 10/02/2024 [facility] DATE CREATED AUTHOR AUTHOR'S ORGANIZ ATION 02/01/2025 [facility] Care Teams (unrecognized sec tion and content) Team Status: Active Member Role Status Dates Emanuel Philippe MD Primary Care Provider Active Team Status: Inactive Member Role Status Dates Emanuel Philippe MD Primary Care Provider Active Start: November 13, 2024 End: November 13, 2024 Barrett Godfrey DO Attending Provider Active St art: November 13, 2024 End: November 13, 2024 Team Status: Inactive Member Role Status Dates Emanuel Philippe MD Primary Care Provider Active Start: November 24, 2024 End: November 24, 2024 Barrett Godfrey DO Attending Provider Active St art: November 24, 2024 End: November 24, 2024 Team Status: Inactive Member Role Status Dates Emanuel Philippe MD Primary Care Provider Active Start: December 18, 2024 End: December 18, 2024 Barrett Godfrey DO Attending Provider Active St art: December 18, 2024 End: December 18, 2024 Team Status: Inactive Member Role Status Dates Emanuel Philippe MD Primary Care Provider Active Start: January 15, 2025 End: January 15, 2025 Barrett Godfrey DO Attending Provider Active St art: January 15, 2025 End: January 15, 2025 Team Status: Inactive Member Role Status Sergei Philippe MD Primary Care Provider Active Start: January 21, 2025 End: January 21, 2025 Barrett Godfrey DO Attending Provider Active St art: January 21, 2025 End: January 21, 2025 Team Status: Active Member Role Status Sergei Philippe MD Primary Care Provider Active Start: January 21, 2025 Barrett Godfrey DO Attending Provider, Other Provider Active Start: January 21, 2025 Goals (unrecognized section and content) Goals may be documented in a n alternate sectionGoals may be documented in an alternate sectionGoals may be documented in an alternate section FOR RECORDS PERTAINING TO PATIENTS WHO ARE [...] BE BASED ON THE PRIMARY CLINICAL RECORDS. [facility] [employer] [facility]. provides no warranty or guarantee of the accuracy or completeness of information in this document.
--- NOTE | 2025-02-12 09:39 | ECG_ITS ---
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 Measurements Intervals [place] Rate: 97 P: 27 VT: 168 QRS: 22 QRSD: 92 T: 38 QT: 334 QTc: 388 Interpretive Statements 1100 Sinus rhythm 9110 normal ECG No previous ECG available for comparison Electronically Signed On 02-12-2025 17:12:58 EDT by KATHERINE GUADALUPE M.D.
--- NOTE | 2025-02-12 09:40 | XR_ITS ---
The [address] [address] Patient Name: TRENT WOLFE MRN: [id number] date: 1960 Sex: M Assigned Patient Location: ER Current Patient Location: ER Accession/Order Number: [id number] Exam Date: 02/12/2025 10:20 Report Date: 02/12/2025 10:23 At the request of: CHESTER DAUGHERTY MD Procedure: XR chest 1V PORTABLE AP ERECT CHEST 22 hours CLINICAL HISTORY: Right-sided chest pain for the past few days with deep inspiration. COMPARISON: None There is shallow inspiration. There is bibasilar parenchymal change, likely atelectasis, left greater than right. There is no additional consolidation. Pleural effusions are not excluded without a lateral view. No pneumothorax is seen. The heart is not well-visualized though is probably not significantly enlarged. The bony structures are intact. XR/XR chest 1V IMPRESSION: SHALLOW INSPIRATION WITH BIBASILAR PARENCHYMAL CHANGE, GREATER ON THE LEFT. Impression dictated by: Faina Trotter M.D.02/12/2025 10:23 AM Dictation Location: [place] [address] Electronically authenticated by: [id number] Y Date: 02/12/2025 10:23
[2025-02-12 09:45] LABS: Basophils Absolute Auto 0.1 10^3/uL (0.0-0.1); Basophils Percent Auto 0.4 % (0.2-2.0); Eosinophils Percent Auto 0.3 % (0.9-7.0); Hematocrit 47.2 % (42.0-54.0); Hemoglobin 16.1 g/dL (14.0-18.0); Immature Granulocytes Abs Auto 0.04 10^3/uL (0.00-0.03); Immature Granulocytes Pct Auto 0.3 % (0.0-0.5); Lymphocytes Absolute Auto 1.5 10^3/uL (1.2-3.8); Lymphocytes Percent Auto 12.3 % (20.5-60.0); Mean Corpuscular HGB Conc 34.1 g/dL (29.9-35.2); Mean Corpuscular Hemoglobin 31.6 pg (25.9-34.0); Mean Corpuscular Volume 92.7 fL (80.0-94.0); Mean Platelet Volume 9.7 fL (9.5-13.5); Monocytes Absolute Auto 1.3 10^3/uL (0.3-0.8); Monocytes Percent Auto 10.9 % (1.7-12.0); Neutrophils Absolute Auto 9.3 10^3/uL (1.4-6.5); Neutrophils Percent Auto 75.8 % (43.0-75.0); Platelet Count 218 10^3/uL (150-450); Red Blood Count 5.09 10^6/uL (4.70-6.10); Red Cell Distribution Width 12.3 % (11.0-15.0); White Blood Count 12.3 10^3/uL (4.0-11.0)
--- NOTE | 2025-02-12 09:46 | ED_ITS ---
HPI HPI - General Adult General Chief complaint: Chest Pain Stated complaint: CHEST PAINS Time Seen by Provider: 02/12/25 09:34 Source: patient Mode of arrival: walk-in History of Present Illness HPI narrative: 64-year-old male presents for a chief complaint of chest pains. He states that it started on the right lower lateral posterior rib region and now is wrapping towards the front on the right side. No trauma or injury but 3 weeks ago he had left rotator cuff repair. He does not have substernal pain. He feels a bit short of breath and he has never had a DVT or PE previously. He is not on any blood thinners. The pain is intermittent. Related Data Home Medications ?Medication ?Instructions ?Recorded ?Confirmed irbesartan 150 mg tablet 150 mg PO DAILY 02/12/25 02/12/25 Allergies Allergy/AdvReac Type Severity Reaction Status Date / Time erythromycin base Allergy Hives Verified 02/12/25 09:16 ibuprofen Allergy Hives Verified 02/12/25 09:16 Opioid HPI Opioid Management Most Recent Opioid Data: No Data to Display Review of Systems ROS Narrative A ten point review of systems is negative except as noted above. PFSH [facility] Medical History (Updated 02/12/25 @ 11:05 by Raheem Mondragon MD) Hypertension ?I10 - Essential (primary) hypertension (ICD-10) Surgical History (Updated 02/12/25 @ 11:03 by Jaquelin Tatum RN) H/O shoulder surgery ?Z98.890 - Other specified postprocedural states (ICD-10) Social History Little interest or pleasure in doing things: not at all Feeling down, depressed, or hopeless: not at all Exam Narrative Exam Narrative: Nurses note and vital signs reviewed and patient is not hypoxic. General: The patient appears well and in no apparent distress. Patient is resting comfortably on cart. Skin: Warm, dry, no pallor noted. There is no rash noted. Head: Normocephalic, atraumatic Eye: Normal conjunctiva, no drainage Ears, Nose, Mouth, and Throat: oral mucosa is moist. Nares patent. Cardiovascular: Regular Rate and Rhythm, borderline tachycardia Respiratory: Patient is in no distress, no accessory muscle use, lungs are clear to auscultation, no wheezing, rales or rhonchi; breath sounds are Back: non-tender GI: Soft and nontender Musculoskeletal: The patient has no evidence of calf tenderness, no pitting edema, symmetrical pulses noted bilaterally Neurological: A&O, normal speech Psychiatric: Cooperative Constitutional Vital Signs, click to edit/add: Last Vital Signs Temp 98.6 F 02/12/25 09:16 Pulse 99 H 02/12/25 11:18 Resp 25 H 02/12/25 11:18 BP 166/77 H 02/12/25 11:18 Pulse Ox 92 L 02/12/25 11:18 O2 Del Method Room Air 02/12/25 09:16 Course Vital Signs Vital signs: Vital Signs Temperature 98.6 F 02/12/25 09:16 Pulse Rate 100 H 02/12/25 09:16 Respiratory Rate 20 02/12/25 09:16 Pulse Oximetry 94 L 02/12/25 09:16 Oxygen Delivery Method Room Air 02/12/25 09:16 Temperature 98.6 F 02/12/25 09:16 Pulse Rate 99 H 02/12/25 11:18 Respiratory Rate 25 H 02/12/25 11:18 Blood Pressure 166/77 H 02/12/25 11:18 Pulse Oximetry 92 L 02/12/25 11:18 Oxygen Delivery Method Room Air 02/12/25 09:16 Medical Decision Making MDM Narrative Medical decision making narrative: Pulmonary embolism is identified on the CAT scan, without heart strain. O2 sats are in the lower 90% range and heart rate is in the lower 90s as well. He was started on IV heparin and will be admitted. He is hemodynamically stable. Treatment diagnosis and disposition were discussed with the patient and his . Differential Diagnosis Differential Diagnosis: Pulmonary embolism, pneumonia, pneumothorax, muscle strain Lab Data Lab results reviewed: Yes I reviewed the patient's lab results Labs: Lab Results 02/12/25 Range/Units 09:20 WBC 12.3 H (4.0-11.0) 10^3/uL RBC 5.09 (4.70-6.10) 10^6/uL Hgb 16.1 (14.0-18.0) g/dL Hct 47.2 (42.0-54.0) % MCV 92.7 (80.0-94.0) fL MCH 31.6 (25.9-34.0) pg MCHC 34.1 (29.9-35.2) g/dL RDW 12.3 (11.0-15.0) % Plt Count 218 (150-450) 10^3/uL MPV 9.7 (9.5-13.5) fL Neut % (Auto) 75.8 H (43.0-75.0) % Lymph % (Auto) 12.3 L (20.5-60.0) % [place] % (Auto) 10.9 (1.7-12.0) % Eos % (Auto) 0.3 L (0.9-7.0) % Baso % (Auto) 0.4 (0.2-2.0) % Neut # (Auto) 9.3 H (1.4-6.5) 10^3/uL Lymph # (Auto) 1.5 (1.2-3.8) 10^3/uL [place] # (Auto) 1.3 H (0.3-0.8) 10^3/uL Eos # (Auto) 0.0 (0.0-0.7) 10^3/uL Baso # (Auto) 0.1 (0.0-0.1) 10^3/uL Abs Immat Gran (auto) 0.04 H (0.00-0.03) 10^3/uL Imm/Tot Granulo (auto) 0.3 (0.0-0.5) % PT 10.7 (9.0-11.6) sec INR 1.01 APTT 30.4 (22.3-36.2) sec Sodium 135 L (136-145) mmol/L Potassium 4.1 (3.5-5.1) mmol/L Chloride 100 (98-107) mmol/L Carbon Dioxide 27.7 (21.0-32.0) mmol/L Anion Gap 11.4 BUN 18.0 (7.0-18.0) mg/dL Creatinine 0.94 (0.70-1.30) mg/dL Est GFR ( Amer) >60 (>=60 mL/min/1.73m^2) Est GFR (Non-Af Amer) >60 (>=60 mL/min/1.73m^2) BUN/Creatinine Ratio 19.1 Glucose 109 H (74-106) mg/dL Calcium 9.7 (8.5-10.1) mg/dL Troponin I High Sens <4.0 L (4.0-76.1) pg/mL Imaging Data Chest x-ray: Radiologist's impression: ITS Impressions Chest X-Ray 02/12/25 09:40 IMPRESSION: SHALLOW INSPIRATION WITH BIBASILAR PARENCHYMAL CHANGE, GREATER ON THE LEFT. Impression dictated by: Faina Trotter M.D.02/12/2025 10:23 AM Dictation Location: [facility] Electronically authenticated by: [id number] Y Date: 02/12/2025 10:23 Chest CTA 02/12/25 10:06 IMPRESSION: RIGHT-SIDED PULMONARY EMBOLI. BIBASILAR PARENCHYMAL CHANGES, RIGHT GREATER THAN LEFT. Comment: Findings were discussed with Dr. Mondragon at 1058 hours Impression dictated by: Faina Trotter M.D.02/12/2025 10:59 AM Dictation Location: [facility] Electronically authenticated by: [id number] Y Date: 02/12/2025 10:59 ECG Data Attestation: I personally reviewed and interpreted this ECG as follows: (EKG on my interpretation shows sinus rhythm with a rate of 97 and no acute change.) Critical Care Time Critical Care Time Critical Care Time: Yes Total Critical Care Time: 35 Attestation: Due to the high probability of sudden and clinically significant deterioration in the patient's condition he/she required the highest level of my preparedness to intervene urgently I provided critical care time including documentation time, medication orders and management, reevaluation, vital sign assessment, ordering and reviewing of lab tests, ordering and reviewing of x-ray studies, and admission orders. Aggregate critical care time is 35 minutes including only time during which I was engaged in work directly related to his/her care and did not include time spent treating other patients simultaneously. Discharge Plan Discharge Chief Complaint: Chest Pain Clinical Impression: Pulmonary embolism Patient Disposition: Admitted As Inpatient Time of Disposition Decision: 11:05 Condition: Fair
[2025-02-12 09:59] LABS: Anion Gap 11.4; BUN Creatinine Ratio 19.1; Calcium 9.7 mg/dL (8.5-10.1); Carbon Dioxide 27.7 mmol/L (21.0-32.0); Chloride 100 mmol/L (98-107); Estimated GFR (African America >60 (>=60 mL/min/1.73m^2); Estimated GFR (Non-African Ame >60 (>=60 mL/min/1.73m^2); Glucose 109 mg/dL (74-106); Potassium 4.1 mmol/L (3.5-5.1); Sodium 135 mmol/L (136-145)
[2025-02-12 10:00] LABS: Troponin I High Sensitivity <4.0 pg/mL (4.0-76.1)
--- NOTE | 2025-02-12 10:06 | CT_ITS ---
The [address] [address] Patient Name: TRENT WOLFE MRN: [id number] date: 1960 Sex: M Assigned Patient Location: ER Current Patient Location: ER Accession/Order Number: [id number] Exam Date: 02/12/2025 10:48 Report Date: 02/12/2025 10:59 At the request of: CHESTER DAUGHERTY MD Procedure: CT angio chest CT PULMONARY ANGIOGRAM WITH CONTRAST CLINICAL HISTORY: Short of breath and right-sided chest pain. Recent surgery 3 weeks ago. COMPARISON: None TECHNIQUE: Spiral images were obtained through the chest following intravenous administration of 100 mL of Omnipaque 350. Images were reviewed using both narrow and wide window settings. Sagittal, coronal and 3 D volume-rendered reconstructions were performed and reviewed. This CT exam was performed using one or more following dose reduction techniques: Automated exposure control, adjustment of the mA and/or kV according to patient size, or use of iterative reconstruction technique. FINDINGS: The heart is top normal in size. There is no pericardial effusion. No aortic aneurysm or dissection is seen. There is adequate opacification of the pulmonary arteries. There are distal right main as well as segmental and some subsegmental pulmonary emboli involving all lobes. No pathologic lymphadenopathy is seen. There are calcified subcarinal granulomas. Dextroscoliotic curvature and endplate spurring are seen at the spine. No pleural effusion or pneumothorax is identified. There is atelectasis at the left lower lobe and lingula. There is mild consolidation at the right posterior costophrenic angle with some air bronchograms. Limited cuts through the upper abdomen show hepatic hypodensities that may be cysts. CT/CT angio chest IMPRESSION: RIGHT-SIDED PULMONARY EMBOLI. BIBASILAR PARENCHYMAL CHANGES, RIGHT GREATER THAN LEFT. Comment: Findings were discussed with Dr. Daugherty at 1058 hours Impression dictated by: Faina Trotter M.D.02/12/2025 10:59 AM Dictation Location: [place] [address] Electronically authenticated by: [id number] Y Date: 02/12/2025 10:59
[2025-02-12 11:17] LABS: INR 1.01; Partial Thromboplastin Time 30.4 sec (22.3-36.2); Prothrombin Time 10.7 sec (9.0-11.6)
[2025-02-12] MEDS: HEPARIN SODIUM,PORCINE/D5W 25,000 UNIT/500 ML IV.SOLN 30 UNIT IV (11:36)
[2025-02-12] MEDS: HEPARIN SODIUM (PORCINE) 5,000 UNIT/ML VIAL 6600 UNIT IV (11:36)
--- OUTSIDE RECORDS SUMMARY | 2025-02-12 12:16 | XMS_ITS | CCD ---
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 Role Phone REQUEST, NONE LISTED Admitting Unavaila ble REQUEST, NONE LISTED Attending Unavaila juan PHILIPPE, DR PICKERING Primary Care Unavailable REQUEST, NONE LISTED Consulting Unavaila TARYN Mahan Referring Unavailable Emanuel Philippe MD Primary Care Provider [phone] Barrett Godfrey DO Attending Provider [phone] Emanuel Philippe MD Primary Care Provider [phone] Barrett Godfrey DO Attending Provider Barrett Godfrey [...] Acetaminophen / oxyCODONE Drug Allergy 07-06-2013 [facility] Repository (5 sources) Erythromycin Drug Allergy 07-06-2013 [facility] Repository (1 source) Ibuprofen Drug Allergy [facility] Repository (5 sources) Ibuprofen; Translations: [ibuprofen] Drug Allergy 11-13-2024 [facility] (1 source) Erythromycin Drug Allergy 01-21-2025 [facility] Repository Medications Current Medications Medication Drug Class(es) [...] [Enzymatic activity/volume] in Serum or Plasma 7-52 [facility] Albumin [Mass/volume] in Ser um or Plasma by Bromocresol green (BCG) dye binding methoOrdered By: Barrett Godfrey on 01-15-2025 Albumin BCG dye [Mass/Vol] Albumin [Mass/volume] in Serum or Plasma by Bromocresol green (BCG) dye binding metho 3.5-5.7 [facility] Alkaline phosphatase [Enzyma tic activity/volume] in Serum or PlasmaOrdered By: Barrett Godfrey on 01-15-2025 ALP [Catalytic activity/Vol] Alkaline phosphatase [Enzymatic activity/volume] in Serum or Plasma 34-104 [facility] Aspartate aminotransferase [ Enzymatic activity/volume] in Serum or PlasmaOrdered By: Barrett Godfrey on 01-15-2025 AST [Catalytic activity/Vol] Aspartate aminotransferase [Enzymatic activity/volume] in Serum or Plasma 13-39 [facility] Basophils Auto (Bld) [#/Vol] Ordered By: Barrett Godfrey on 01-15-2025 Basophils (Bld) [#/Vol] Automated basoph il count 0.0-0.2 [facility] Basophils/100 WBC Auto (Bld) Ordered By: Barrett Godfrey on 01-15-2025 Basophils/100 WBC (Bld) Automated basophil % . [facility] Bilirubin.total [Mass/volume ] in Serum or PlasmaOrdered By: Barrett Godfrey on 01-15-2025 Bilirubin [Mass/Vol] Bilirubin.total [Mass/volume] in Serum or Plasma 0.3-1.0 [facility] CMP with reflex to A1Con Albumin [Mass/Vol] 4.8 g/dL Normal 3.5-5.7 [facility] Comment on above: Performed By: #### C BC, CMP wRFX A1C #### [facility] [address] Albumin/Globulin [Mass ratio] 2.3 {ratio} Normal [facility] Comment on above: Performed By: #### C BC, CMP wRFX A1C #### [facility] [address] ALP [Catalytic activity/Vol] 39 U/L Normal 34-104 [facility] Comment on above: Result Comment: PERF ORMED BY: [place] [address] PATHOLOGIST IT CONSULTANT ELADIO CARLSON M.D. Performed By: #### C BC, CMP wRFX A1C #### [address] ALT [Catalytic activity/Vol] 23 U/L Normal 7-52 [facility] Comment on above: Performed By: #### C BC, CMP wRFX A1C #### [facility] [address] [place] [id number] [facility] Anion gap [Moles/Vol] 11.5 mmol/L Normal 6.0-15.0 [facility] e [facility] Comment on above: Performed By: #### C BC, CMP wRFX A1C #### [facility] [address] [place] [id number] [facility] AST [Catalytic activity/Vol] 23 U/L Normal 13-39 [facility] Comment on above: Performed By: #### C BC, CMP wRFX A1C #### [facility] [address] [place] [address] [facility] Bilirubin [Mass/Vol] 0.6 mg/dL Normal 0.3-1.0 [facility] Comment on above: Performed By: #### C BC, CMP wRFX A1C #### [address] Calcium [Mass/Vol] 9.2 mg/dL Normal 8.6-10.3 [facility] Comment on above: Performed By: #### C BC, CMP wRFX A1C #### [place] [address] [place] Chloride [Moles/Vol] 105 mmol/L Normal 98-107 [facility] Comment on above: Performed By: #### C BC, CMP wRFX A1C #### [address] CO2 [Moles/Vol] 26.0 mmol/L Normal 21.0-31.0 The [facility] Comment on above: Performed By: #### C BC, CMP wRFX A1C #### [address] Creatinine [Mass/Vol] 0.86 mg/dL Normal 0.70-1.30 [facility] Comment on above: Performed By: #### C BC, CMP wRFX A1C #### [place] [address] [place] GFR/1.73 sq M.predicted MDRD (S/P/Bld) [Vol rate/Area] mL/min/{1.73_m2} Normal [facility] Comment on above: Performed By: #### C BC, CMP wRFX A1C #### [address] Globulin (S) [Mass/Vol] 2.1 g/dL Normal [facility] Comment on above: Performed By: #### C BC, CMP wRFX A1C #### [address] Glucose [Mass/Vol] 98 mg/dL Normal 70-100 [facility] Comment on above: Performed By: #### C BC, CMP wRFX A1C #### [place] [address] [place] Potassium [Moles/Vol] 4.5 mmol/L Normal 3.5-5.1 [facility] Comment on above: Performed By: #### C BC, CMP wRFX A1C #### [facility] [address] Protein [Mass/Vol] 6.9 g/dL Normal 6.4-8.9 [facility] Comment on above: Performed By: #### C BC, CMP wRFX A1C #### [address] Sodium [Moles/Vol] 138 mmol/L Normal 136-145 [facility] Comment on above: Performed By: #### C BC, CMP wRFX A1C #### [address] Urea nitrogen [Mass/Vol] 23 mg/dL Normal 7-25 [facility] Comment on above: Performed By: #### C BC, CMP wRFX A1C #### [address] Calcium [Mass/volume] in Ser um or PlasmaOrdered By: Barrett Godfrey on 01-15-2025 Calcium [Mass/Vol] Calcium [Mass/volume] in Serum or Plasma 8.6-10.3 [facility] Carbon dioxide, total [Moles /volume] in Serum or PlasmaOrdered By: Barrett Godfrey on 01-15-2025 CO2 [Moles/Vol] Carbon dioxide, total [Moles/volume] in Serum or Plasma 21.0-31.0 [facility] Chloride [Moles/volume] in S cody or PlasmaOrdered By: Barrett Godfrey on 01-15-2025 Chloride [Moles/Vol] Chloride [Moles/volume] in Serum or Plasma 98-107 [facility] Complete Blood Count Auto Di ffon 01-15-2025 Basophils (Bld) [#/Vol] 0.1 10*3/uL Normal 0.0-0.2 [facility] Comment on above: Result Comment: PERF ORMED BY: [place] [address] PATHOLOGIST IT CONSULTANT ELADIO CARLSON M.D. Performed By: #### C BC, CMP wRFX A1C #### [address] Basophils/100 WBC (Bld) 1.3 % Normal . [facility] Comment on above: Performed By: #### C BC, CMP wRFX A1C #### [address] Eosinophils (Bld) [#/Vol] 0.2 10*3/uL Normal 0.0-0.45 [facility] Comment on above: Performed By: #### C BC, CMP wRFX A1C #### [address] Eosinophils/100 WBC (Bld) 2.6 % Normal . [facility] Comment on above: Performed By: #### C BC, CMP wRFX A1C #### [address] Erythrocyte distribution width (RBC) [Ratio] 13.4 % Normal 12.0-14.[address] [facility] Comment on above: Performed By: #### C BC, CMP wRFX A1C #### [address] Hematocrit (Bld) [Volume fraction] 46.8 % Normal 38.8-50.0 [facility] Comment on above: Performed By: #### C BC, CMP wRFX A1C #### [address] Hemoglobin (Bld) [Mass/Vol] 16.1 g/dL Normal 13.0-17.0 [facility] Comment on above: Performed By: #### C BC, CMP wRFX A1C #### [address] Lymphocytes (Bld) [#/Vol] 1.7 10*3/uL Normal 1.00-4.8 [facility] Comment on above: Performed By: #### C BC, CMP wRFX A1C #### [facility] [address] [place] [address] [place] Lymphocytes/100 WBC (Bld) 28.2 % Normal . [facility] Comment on above: Performed By: #### C BC, CMP wRFX A1C #### [facility] [address] MCH (RBC) [Entitic mass] 31.8 pg Normal 27.5-35.2 [facility] Comment on above: Performed By: #### C BC, CMP wRFX A1C #### [facility] [address] MCV (RBC) [Entitic vol] 92.4 fL Normal 83.5-101 [facility] Comment on above: Performed By: #### C BC, CMP wRFX A1C #### [address] Mean Corpuscular HGB Conc 34.4 g/dL Normal 32.5-35.6 [facility] Comment on above: Performed By: #### C BC, CMP wRFX A1C #### [place] [address] [place] Monocytes (Bld) [#/Vol] 0.6 10*3/uL Normal 0.0-0.8 [facility] Comment on above: Performed By: #### C BC, CMP wRFX A1C #### [place] [address] [place] Monocytes/100 WBC (Bld) 10.2 % Normal . [facility] Comment on above: Performed By: #### C BC, CMP wRFX A1C #### [facility] [address] [place] [address] [place] Neutrophils (Bld) [#/Vol] 3.4 10*3/uL Normal 1.8-7.7 [facility] Comment on above: Performed By: #### C BC, CMP wRFX A1C #### [place] [address] [place] Neutrophils/100 WBC (Bld) 57.7 % Normal . [facility] Comment on above: Performed By: #### C BC, CMP wRFX A1C #### [facility] [address] NRBC% 0.1 /100{WBC} Normal 0-0.5 The [facility] Comment on above: Performed By: #### C BC, CMP wRFX A1C #### [facility] [address] Platelet mean volume (Bld) [Entitic vol] 8.3 fL Normal 6.6-10.[address] [facility] Comment on above: Performed By: #### C BC, CMP wRFX A1C #### [facility] [address] [place] [address] [place] Platelets (Bld) [#/Vol] 177 10*3/uL Normal 150-450 [facility] Comment on above: Performed By: #### C BC, CMP wRFX A1C #### [facility] [address] [place] [address] [place] RBC (Bld) [#/Vol] 5.07 10*6/uL Normal 3.90-5.60 The [facility] Comment on above: Performed By: #### C BC, CMP wRFX A1C #### [facility] [address] [place] [address] WBC (Bld) [#/Vol] 6.0 10*3/uL Normal 4.1-10.5 [facility] Comment on above: Performed By: #### C BC, CMP wRFX A1C #### [place] [address] [place] Creatinine [Mass/volume] in Serum or PlasmaOrdered By: Barrett Godfrey on 01-15-2025 Creatinine [Mass/Vol] Creatinine [Mass/volume] in Serum or Plasma 0.70-1.30 [facility] ECG 12 lead ECGon 01-15-2025 ECG 12 lead ECG [facility] [place] [address] [place] [address] Electrocardiograph Report Signed Patient: Darien Wilcox MR#: [id number] : 1960 Acct:[id number] Age/Sex: 64 / M ADM Date: 01/15/25 Loc: PS Room: Type: [facility] Attending Dr: Barrett Godfrey DO Ordering Provider: [...] MD 0 01/15/25 1100 Normal [facility] Eosinophils Auto (Bld) [#/Vo l]Ordered By: Barrett Godfrey on 01-15-2025 Eosinophils (Bld) [#/Vol] Automated eosinophil count 0.0-0.45 [facility] Eosinophils/100 WBC Auto (Bl d)Ordered By: Barrett Godfrey on 01-15-2025 Eosinophils/100 WBC (Bld) Automated eosinophil % . [facility] Erythrocyte distribution wid th Auto (RBC) [Ratio]Ordered By: Barrett Godfrey on 01-15-2025 Erythrocyte distribution width (RBC) [Ratio] Erythrocyte distribution width [Ratio] by Automated count 12.0-14.8 [facility] Globulin Calc (S) [Mass/Vol] Ordered By: Barrett Godfrey on 01-15-2025 Globulin (S) [Mass/Vol] Serum globulin measurement by calculation (mass/volume) [facility] Glucose [Mass/volume] in Ser um or PlasmaOrdered By: Barrett Godfrey on 01-15-2025 Glucose [Mass/Vol] Glucose [Mass/volume] in Serum or Plasma 70-100 [facility] Hematocrit Auto (Bld) [Volum e fraction]Ordered By: Barrett Godfrey on 01-15-2025 Hematocrit (Bld) [Volume fraction] Hematocrit [Volume Fraction] of Blood by Automated count 38.8-50.0 [facility] Hemoglobin [Mass/volume] in BloodOrdered By: Barrett Godfrey on 01-15-2025 Hemoglobin (Bld) [Mass/Vol] Hemoglobin [Mass/volume] in Blood 13.0-17.0 [facility] Leukocytes [#/volume] correc lianne for nucleated erythrocytes in Blood by Automated counOrdered By: Barrett Godfrey on 01-15-2025 WBC corrected for nucl RBC Auto (Bld) [#/Vol] Leukocytes [#/volume] corrected for nucleated erythrocytes in Blood by Automated coun 4.1-10.5 [facility] Lymphocytes Auto (Bld) [#/Vo l]Ordered By: Barrett Godfrey on 01-15-2025 Lymphocytes (Bld) [#/Vol] Lymphocytes [#/volume] in Blood by Automated count 1.00-4.8 [facility] Lymphocytes/100 WBC Auto (Bl d)Ordered By: Barrett Godfrey on 01-15-2025 Lymphocytes/100 WBC (Bld) Lymphocytes/100 leukocytes in Blood by Automated count . [facility] MCH Auto (RBC) [Entitic mass ]Ordered By: Barrett Godfrey on 01-15-2025 MCH (RBC) [Entitic mass] MCH [Entitic ma ss] by Automated count 27.5-35.2 [facility] MCHC Auto (RBC) [Mass/Vol]Or dered By: Barrett Godfrey on 01-15-2025 MCHC (RBC) [Mass/Vol] MCHC [Mass/volume] by Automated count 32.5-35.6 [facility] MCV Auto (RBC) [Entitic vol] Ordered By: Barrett Godfrey on 01-15-2025 MCV (RBC) [Entitic vol] MCV [Entitic vol ume] by Automated count 83.5-101 [facility] Monocytes Auto (Bld) [#/Vol] Ordered By: Barrett Godfrey on 01-15-2025 Monocytes (Bld) [#/Vol] Automated blood monocyte count 0.0-0.8 [facility] Monocytes/100 WBC Auto (Bld) Ordered By: Barrett Godfrey on 01-15-2025 Monocytes/100 WBC (Bld) Automated monocyte % . [facility] Neutrophils Auto (Bld) [#/Vo l]Ordered By: Barrett Godfrey on 01-15-2025 Neutrophils (Bld) [#/Vol] Neutrophils [#/volume] in Blood by Automated count 1.8-7.7 [facility] Neutrophils/100 WBC Auto (Bl d)Ordered By: Barrett Godfrey on 01-15-2025 Neutrophils/100 WBC (Bld) Automated neutrophil % . [facility] No Panel InformationOrdered By: Barrett Godfrey on 01-15-2025 Estimated GFR (CKD-EPI) > 60.0 mL/Min [facility] Creatinine Clearance (Chem N/A [facility] Nucleated erythrocytes [Pres ence] in Blood by Automated countOrdered By: Barrett Godfrey on 01-15-2025 Nucleated RBC Auto Ql (Bld) Nucleated erythrocytes [Presence] in Blood by Automated count 0-0.5 [facility] Platelet mean volume Auto (B ld) [Entitic vol]Ordered By: Barrett Godfrey on 01-15-2025 Platelet mean volume (Bld) [Entitic vol] Platelet mean volume [Entitic volume] in Blood by Automated count 6.6-10.1 [facility] Platelets Auto (Bld) [#/Vol] Ordered By: Barrett Godfrey on 01-15-2025 Platelets (Bld) [#/Vol] Platelets [#/vol ume] in Blood by Automated count 150-450 [facility] Potassium [Moles/volume] in Serum or PlasmaOrdered By: Barrett Godfrey on 01-15-2025 Potassium [Moles/Vol] Potassium [Moles/volume] in Serum or Plasma 3.5-5.1 [facility] Protein [Mass/volume] in Ser um or PlasmaOrdered By: Barrett Godfrey on 01-15-2025 Protein [Mass/Vol] Protein [Mass/volume] in Serum or Plasma 6.4-8.9 [facility] RBC Auto (Bld) [#/Vol]Ordere d By: Barrett Godfrey on 01-15-2025 RBC (Bld) [#/Vol] Erythrocytes [#/volume] in Blood by Automated count 3.90-5.60 [facility] Serum or plasma albumin/glob ulin mass ratioOrdered By: Barrett Godfrey on 01-15-2025 Albumin/Globulin [Mass ratio] Serum or plasma albumin/globulin mass ratio [facility] Serum or plasma anion gap de terminationOrdered By: Barrett Godfrey on 01-15-2025 Anion gap [Moles/Vol] Serum or plasma anion gap determination 6.0-15.0 [facility] Sodium [Moles/volume] in Ser um or PlasmaOrdered By: Barrett Godfrey on 01-15-2025 Sodium [Moles/Vol] Sodium [Moles/volume] in Serum or Plasma 136-145 [facility] Urea nitrogen [Mass/volume] in Serum or PlasmaOrdered By: Barrett Godfrey on 01-15-2025 Urea nitrogen [Mass/Vol] Urea nitrogen [Mass/volume] in Serum or Plasma 7-25 [facility] WBC Auto (Bld) [#/Vol]Ordere d By: Barrett Godfrey on 01-15-2025 WBC (Bld) [#/Vol] Leukocytes [#/volume] in Blood by Automated count 4.1-10.5 [facility] MR shoulder LT wo conon 10-30 [place] [address] MRI Report Signed Patient: Darien Wilcox MR#: [id number] : 1960 Acct:[id number] Age/Sex: 64 / M ADM Date: 11/24/24 Loc: [facility] Room: Type: [facility] Attending Dr: Barrett Godfrey DO Copies to: [...] Jama Jr., D.OGalo11/24/2024 3:34 PM Dictation Location: [place] [address] Transcribed By: [facility] 11/24/24 1534 Dictated By: Rojas Jama Jr, DO 11/24/24 1529 Signed By: 11/24/24 1534 Normal [facility] Magnetic resonance imaging r eportOrdered By: Rojas Jama on 11-24-2024 Study report [facility] [place] [address] MRI Report Signed Patient: Darien Wilcox MR#: [id number] : 1960 Acct:[id number] Age/Sex: 64 / M ADM Date: 5 Loc: [facility] Room: Type: [facility] Attending Dr: Barrett Godfrey DO Copies to: Barrett Gdofrey DO~ Ordering Provider: Barrett Godfrey DO Date [...] Jama Jr., D.OGalo11/24/2024 3:34 PM Dictation Location: [place] [address] Transcribed By: [facility] 11/24/24 1534 Dictated By: Rojas Jama Jr, DO 11/24/24 1529 Signed By: 11/24/24 1534 [facility] X-ray reportOrdered By: Tyshawn Jama on 11-13-2024 Study report [facility] [address] [place] [address] XRay Report Signed Patient: Darien Wilcox MR#: [id number] : 1960 Acct:[id number] Age/Sex: 64 / M ADM Date: 5 Loc: [facility] Room: Type: [facility] Attending Dr: Barrett Godfrey DO Copies [...] Jama Jr., D.OGalo11/13/2024 3:42 PM Dictation Location: [place] [address] Transcribed By: [facility] 11/13/24 1542 Dictated By: Rojas Jama Jr, DO 11/13/24 1541 Signed By: 11/13/24 1542 [facility] XR shoulder LT min 2V*on XR shoulder LT min 2V* [facility] [address] [place] [id number] XRay Report Signed Patient: Darien Wilcox MR#: [id number] : 1960 Acct:[id number] Age/Sex: 64 / M ADM Date: 11/13/24 Loc: [facility] Room: Type: [facility] Attending Dr: Barrett Godfrey DO Copies [...] Jama Jr., DGaloOGalo11/13/2024 3:42 PM Dictation Location: [place] [address] Transcribed By: [facility] 11/13/24 1542 Dictated By: Rojas Jama Jr, DO 11/13/24 1541 Signed By: 11/13/24 1542 Normal [facility] XR SHOULDER LT MIN 2 [...] Choudhary MD on 09/30/2024 5:12 PM Normal [facility] Vital Signs Date Time Vital Sign Value Performing Clinician Alcirai keisha 01-21-2025 13:40-0400 Diastolic blood pressure 78 mm[Hg] Emanuel Philippe MD Work Phone: [facility] 01-21-2025 13:40-0400 Heart rate 88 /min Emanuel Philippe MD Work Phone: [facility] 01-21-2025 13:40-0400 Respiratory rate 16 /min Emanuel Philippe MD Work Phone: [facility] 01-21-2025 13:40-0400 SaO2% (BldA) [Mass fraction] 96 % Emanuel Philippe MD Work Phone: [facility] 01-21-2025 13:40-0400 Systolic blood pressure 138 mm[Hg] Emanuel Philippe MD Work Phone: [facility] 01-21-2025 12:04-0400 Body temperature 97.7 [degF] Emanuel Philippe MD Work Phone: [facility] 01-21-2025 12:04-0400 Inhaled oxygen flow rate 8 L/min Emanuel Philippe MD Work Phone: [facility] 01-21-2025 09:04-0400 Body height 177.8 cm Emanuel Philippe MD Work Phone: [facility] 01-21-2025 09:04-0400 Body weight 95.25 kg Emanuel Philippe MD Work Phone: [facility] 01-15-2025 09:16-0400 Body height 177.8 cm Emanuel Philippe MD Work Phone: [facility] 01-15-2025 09:16-0400 Body mass index (BMI) [Ratio] 29.7 kg/m2 Emanuel Philippe MD Work Phone: [facility] 01-15-2025 09:16-0400 Body weight 93.89 kg Emanuel Philippe MD Work Phone: [facility] 11-13-2024 10:30-0500 Body height 179.07 cm Emaneul Philippe MD Work Phone: [facility] 11-13-2024 10:30-0500 Body mass index (BMI) [Ratio] 29.2 kg/m2 Emanuel Philippe MD Work Phone: [facility] 11-13-2024 10:30-0500 Body weight 93.89 kg Emanuel Philippe MD Work Phone: [facility] Encounters Encounter Date Encounter Type Care Provider Facility Start: 01-23-2025 ambulatory Barrett Godfrey Facility :[facility] Start: 01-21-2025 Non-patient / Non-visit Tanna Philippe MD Work Phone: [facility] Work Phone: Start: 01-21-2025 End: 01-21-2025 Admission to same day surgery center Emanuel Philippe MD Work Phone: [facility] [place] Start: 01-21-2025 End: 01-21-2025 ambulatory Emanuel Philippe MD Work Phone: [facility] Work Phone: Start: 01-15-2025 End: 01-15-2025 Encounter for other preprocedural examination Emanuel Philippe MD Work Phone: [facility] Start: 01-15-2025 End: 01-15-2025 Patient encounter procedure Emanuel Philippe MD Work Phone: [facility] Work Phone: Start: 01-15-2025 End: 01-15-2025 Patient encounter procedure Emanuel Philippe MD Work Phone: [facility] Work Phone: Start: 01-15-2025 End: 01-15-2025 ambulatory Emanuel Philippe MD Work Phone: [facility] Work Phone: Start: 01-15-2025 Encounter for preprocedural laboratory examination Barrett Godfrey [facility] Start: 01-14-2025 Patient encounter status Rogers Philippe MD Work Phone: [facility] Start: 12-18-2024 End: 12-18-2024 Patient encounter procedure Emanuel Philippe MD Work Phone: [facility] Work Phone: Start: 11-24-2024 End: 11-24-2024 ambulatory Emanuel Philippe MD Work Phone: [facility] Work Phone: Start: 11-24-2024 End: 11-24-2024 Patient encounter procedure Emanuel Philippe MD Work Phone: [facility] [address] Closed Work Phone: Start: 11-13-2024 End: 11-13-2024 ambulatory Emanuel Philippe MD Work Phone: [facility] Work Phone: Start: 11-13-2024 End: 11-13-2024 Patient encounter procedure Emanuel Philippe MD Work Phone: Formerly [facility] Work Phone: Start: 09-30-2024 ambulatory [facility] Start: 12-04-2022 End: 12-05-[address] [...] above: Performed By: #### D ATPSA #### [facility] [address] [place] [address] Dr. Sera Mckenna History of appendectomy History [...] Activity Detail Author Start: 01-21-2025 End: 01-21-2025 [facility] MR Shoulder - left W O contrast [facility] Patient Education Know your Meds [facility] Work Phone: Payers Date Payer Category Payer Unknown [id number] 2024 Self-pay 1959 Self-pay [id number] Unknown [id number] [id number] [id number] Unknown [id number] 2.16.8 [id number] Unknown [id number] 2.16.8 [id number] Unknown [id number] 2.16.8 [id number] Unknown [id number] 2.16.8 [id number] Unknown [id number] 2.16.8 [id number] Social History Date Type Detail Facility Tobacco smoking stat us NHIS Unknown if ever smoked [facility] Work Phone: Start: 11-14-2024 End: 01-21-2025 Sex Male (finding) [facility] Start: 1960 Sex Assigned At Male [facility] Start: 11-25-2024 Sex Patient sex un known (finding) [facility] Start: 01-15-2025 End: 01-21-2025 Tobacco smoking status NHIS Current some day smoker [facility] Goals Date Patient Goal Desired Activity /State Evaluation note 11-13-2024 Note Date & Type Note Facility 11-13-2024 Evaluation note Diagnosis Onset Date Resolution Rupture of left supraspinatus tendon acute October 10:06am Unspecified sprain of left shoulder joint, initial encounter acute November 13, 2024 10:06am [facility] Work Phone: Evaluation note 11-13-2024 [...] joint, initial encounter acute January 15 9:08am [facility] Work Phone: Hospital Discharge instructions Note Date & Type Note Facility Hospital Discharge instructions Additional Instructions POSTOPERATIVE INSTRUCTIONS FOR ROTATOR CUFF REPAIR Barrett Godfrey DO Orthopedic Surgeon [facility] GENERAL INSTRUCTIONS: Use ice packs to the [...] office immediately. Barrett Godfrey DO Orthopedic Surgeon [facility] Office: [address] [place] [id number] Office number: [phone] [facility] Work Phone: Summary Purpose Family [...] Reason for Visit Chief Complaint Admit Date [facility] DOI 09/30/24 LT SHOULDER INJURY 2024 10:06am S46.012A S42.402A November 13, 2024 1 0:44am Reason for Visit Admit Date Rupture of left supraspinatus tendon Oct 2024 10:06am Unspecified sprain of left s houlder joint, initial encounter November 13, 2024 10:06am Chief Complaint Admit Date [facility] DOI 09/30/24 LT SHOULDER INJURY 2024 10:06am S46.012A S42.402A November 13, 2024 1 0:44am S46.012A November 24, 2024 1 2:54pm Chief Complaint Admit Date [facility] DOI 09/30/24 LT SHOULDER INJURY 2024 10:06am S46.012A S42.402A November 13, 2024 1 0:44am S46.012A November 24, 2024 1 2:54pm MRI RESULTS [facility] December 18, 2024 12:49pm Shoulder pain January [...] 15, 2025 9:08am Chief Complaint Admit Date [facility] DOI 09/30/24 LT SHOULDER INJURY Janua ry 2024 10:06am S46.012A S42.402A November 13, 2024 1 0:44am S46.012A November 24, 2024 1 2:54pm MRI RESULTS [facility] December 18, 2024 12:49pm Shoulder pain January [...] and content) DATE CREATED AUTHOR 12/05/2022 [facility] DATE CREATED AUTHOR AUTHOR'S ORGANIZ ATION 10/02/2024 [facility] DATE CREATED AUTHOR AUTHOR'S ORGANIZ ATION 02/01/2025 [facility] Care Teams (unrecognized sec [...] BE BASED ON THE PRIMARY CLINICAL RECORDS. [facility]. provides no warranty or guarantee of the accuracy or completeness of information in this document.
--- NOTE | 2025-02-12 12:53 | CA_ITS ---
Patient Name: TRENT WOLFE MR#: [id number] : 1960 Exam Date: 02/12/2025 Ordering Doctor: DR Emanuel Johansen . ECHOCARDIOGRAM REPORT PROCEDURE: CA ECHO DOPPLER COMPLETE INDICATIONS: eval Strain, right pulmonary emboli, hypertension COMPARISON: None. DESCRIPTION: COMPLETE ECHOCARDIOGRAM Real-time transthoracic echocardiography with 2D, M-mode, spectral and color flow Doppler performed. QUALITY: Technical quality was adequate. LEFT VENTRICLE: Normal chamber size. Normal left ventricular wall thickness. Left ventricle is hyperdynamic with EF 75%, no wall motion abnormalities. Mild increase in LVOT velocity due to hyperdynamic status, no evidence of LVOT obstruction. LV EF: 75% DIASTOLIC: Normal ATRIAL SEPTUM: Appears intact LEFT ATRIUM: Normal chamber size. RIGHT ATRIUM: Normal chamber size. RIGHT VENTRICLE: Normal chamber size. TRICUSPID VALVE: Normal mobility and thickness. No stenosis with no regurgitation. MITRAL VALVE: Normal mobility and thickness. No evidence of mitral valve stenosis. Mild mitral annular calcification. No mitral regurgitation. AORTIC VALVE: Normal trileaflet appearance. No visible sclerosis. Normal leaflet mobility. No evidence of aortic valve stenosis. No aortic regurgitation. AORTIC ROOT: Normal diameter and appearance. PULMONIC VALVE: Not well visualized. No stenosis. No regurgitation. PERICARDIUM: No evidence of pericardial effusion. IVC: Collapes with inspirations. IVC is normal in size. PLEURA: CONCLUSION: Normal LV size and wall thickness, hyperdynamic systolic function without wall motion abnormalities or LVOT obstruction, EF 75% Normal LV diastolic function Normal right ventricle size and systolic function No significant valvular abnormalities Adult Echocardiography Procedure Report Left Ventricle LVEDD (3.7 - 5.6 cm): 3.68 cm LVESD (2.2 - 4.0 cm): 2.61 cm LVIVS thickness (0.6 - 1.2 cm): 0.97 cm LVPW thickness (0.5 - 1.0 cm): 0.95 cm e': 0.13 m/s E - e': 5.21 LVOT Max Gradient: 7.59 mm[Hg] LVOT Area (cm2): 1.38 m/s Peak Velocity (LVOT): 1.38 m/s Mean Velocity (LVOT): 0.97 m/s LVOT Diameter 2.20 cm Left Atrium LA Volume Index (2D A2C): 15.37 ml/m2 Left Atrium Systolic Dimension: 3.14 cm Mitral Valve MV E to A Ratio: 0.61 Mitral Valve A-Wave Peak Velocity: 1.09 m/s Mitral Valve E-Wave Peak Velocity: 0.66 m/s Right Ventricle Aorta AO Root Diam: 3.41 cm Aortic Valve Tricuspid Valve Pulmonic Valve Peak Velocity: 1.14 m/s Peak Gradient: 5.20 mm[Hg] Right Atrium Dictated by: Osito Forbes MD on 02/12/2025 at 15:41 Approved by: Osito Forbes MD on 02/12/2025 at 15:50
--- NOTE | 2025-02-12 13:06 | P.HP_ITS ---
HPI H&P: HPI History of Present Illness Chief complaint: CHEST PAINS, PE Narrative: Patient with shoulder surgery about 3 weeks ago, had called the office with having increasing shortness of breath and chest pain, with symptoms progressing it was recommended he visit the emergency room. In the emergency room patient found to have distal right main and segmental and subsegmental pulmonary emboli with no heart strain on CT scan When I saw patient up on the medical surgical floor, resting comfortably in bed, only has the chest pain and shortness of breath with activity and deep breathing Opioid HPI Opioid Management Most Recent Pain and Opioid Data: Last Pain Scale 4 02/12/25 14:04 02/12/25 Last Pain Assessment 02/12/25 18:00 Last MAR Pain Assessment 02/12/25 14:04 Last ORT Total Score 3 02/12/25 12:21 02/12/25 Last ORT Risk Category Low Risk 02/12/25 12:21 02/12/25 Review of Systems ROS Status of ROS 10 or more systems reviewed and unremark able except as noted in history and below PFSH PFSH Medical History (Updated 02/12/25 @ 11:05 by Raheem Mondragon MD) Hypertension ?I10 - Essential (primary) hypertension (ICD-10) Surgical History (Updated 02/12/25 @ 11:03 by Jaquelin Tatum RN) H/O shoulder surgery ?Z98.890 - Other specified postprocedural states (ICD-10) Social History Little interest or pleasure in doing things: not at all Feeling down, depressed, or hopeless: not at all Meds Home Medications and Allergies Home Medications ?Medication ?Instructions ?Recorded ?Confirmed ?Type irbesartan 150 mg tablet 150 mg PO DAILY 02/12/25 02/12/25 History Allergies Allergy/AdvReac Type Severity Reaction Status Date / Time erythromycin base Allergy Hives Verified 02/12/25 09:16 ibuprofen Allergy Hives Verified 02/12/25 09:16 Exam Constitutional Vital Signs, click to edit/add: Last Vital Signs Temp 98.7 F 02/12/25 12:21 Pulse 94 H 02/12/25 12:21 Resp 18 02/12/25 12:21 BP 151/86 H 02/12/25 12:21 Pulse Ox 91 L 02/12/25 12:21 O2 Del Method Room Air 02/12/25 12:21 Documenting provider has reviewed patient's vital signs: yes Common normals: no apparent distress Chest Common normals: inspection of chest normal and palpation of chest normal Respiratory Common normals: normal respiratory effort and no retractions Cardio Common normals: regular rate, regular rhythm and no murmurs GI Common normals: Normal to inspection, nondistended, normoactive bowel sounds present Results Labs Labs: Short CBC 02/12/25 Range/Units 09:20 WBC 12.3 H (4.0-11.0) 10^3/uL Hgb 16.1 (14.0-18.0) g/dL Hct 47.2 (42.0-54.0) % Plt Count 218 (150-450) 10^3/uL BMP 02/12/25 09:20 Sodium 135 L Potassium 4.1 Chloride 100 Carbon Dioxide 27.7 BUN 18.0 Creatinine 0.94 Glucose 109 H Calcium 9.7 Assessment and Plan Assessment and Plan (1) Pulmonary embolism: (2) Hypertension: (3) H/O shoulder surgery: Plan Admission findings: Sinus tachycardia, respiratory distress, elevated hypertension, hypoxia with O2 sat of 90%, leukocytosis, hyponatremia all secondary to acute pulmonary embolism mainly affecting the distal right main and segmental and subsegmental portions of the right lung Pulmonary embolism-patient started on heparin, will convert to Eliquis this evening, heart rate improving, monitor overnight on telemetry Borderline hypoxia-likely to deteriorate overnight with sleep, may need supplemental oxygen Hypertension-continue with home medications Left shoulder surgery 3 weeks ago-pain control Admission status: Patient with acute pulmonary embolism without heart strain, hypoxia and tachycardia and uncontrolled hypertension, medically necessary treatment will more than likely span 2 midnights, will start patient off as inpatient status
[2025-02-12] MEDS: ACETAMINOPHEN 500 MG TABLET 1000 MG PO ×2 (13:11→21:22)
[2025-02-12 13:41] LABS: Alanine Aminotransferase 26 U/L (16-63); Albumin Globulin Ratio 1.1; Albumin Level 3.8 g/dL (3.4-5.0); Alkaline Phosphatase 47 U/L (46-116); Aspartate Amino Transferase 16 U/L (15-37); Bilirubin Direct 0.3 mg/dL (0.0-0.2); Bilirubin Total 1.1 mg/dL (0.2-1.0); Globulin 3.6 g/dL; Total Protein 7.4 g/dL (6.4-8.2)
[2025-02-12 13:47] LABS: Troponin I High Sensitivity 4.4 pg/mL (4.0-76.1)
[2025-02-12] MEDS: LEVOFLOXACIN 750 MG TABLET PO (14:02)
[2025-02-12] MEDS: HYDRALAZINE HCL 20 MG/ML VIAL 10 MG IVP (14:11)
--- NOTE | 2025-02-12 16:03 | SWNOTE1 ---
SW stopped in to speak with patient about insurance. Pt did confirm that he is a self pay patient with no insurance. Pt stated him and his did get the paperwork for financial assistance and they want to see what the bill will be to determine if they will fill out forms. SW asked if they would like to speak to [facility], he stated no not at this time. SW to follow as needed. SW did inform Guillermina at [facility] of patient.
[2025-02-12 18:12] LABS: PTT Heparin Monitor 60.6 sec (43.5-61.5)
[2025-02-12 18:14] LABS: Troponin I High Sensitivity <4.0 pg/mL (4.0-76.1)
[2025-02-12] MEDS: APIXABAN 5 MG TABLET 10 MG PO (19:54)
[2025-02-13] VITALS (9 sets, daily range): BP systolic 126–148; BP diastolic 77–95; PULSE 84–95; TEMP 36.1–37.6; O2SAT 90–93
[2025-02-13] MEDS: ACETAMINOPHEN 500 MG TABLET 1000 MG PO (04:00)
[2025-02-13 06:30] LABS: Basophils Percent Auto 0.4 % (0.2-2.0); Eosinophils Absolute Auto 0.1 10^3/uL (0.0-0.7); Eosinophils Percent Auto 1.2 % (0.9-7.0); Hemoglobin 14.4 g/dL (14.0-18.0); Immature Granulocytes Abs Auto 0.02 10^3/uL (0.00-0.03); Immature Granulocytes Pct Auto 0.2 % (0.0-0.5); Lymphocytes Percent Auto 22.1 % (20.5-60.0); Mean Corpuscular HGB Conc 34.3 g/dL (29.9-35.2); Mean Corpuscular Hemoglobin 31.6 pg (25.9-34.0); Mean Corpuscular Volume 92.3 fL (80.0-94.0); Mean Platelet Volume 10.2 fL (9.5-13.5); Monocytes Absolute Auto 1.2 10^3/uL (0.3-0.8); Monocytes Percent Auto 13.3 % (1.7-12.0); Neutrophils Absolute Auto 5.8 10^3/uL (1.4-6.5); Neutrophils Percent Auto 62.8 % (43.0-75.0); Platelet Count 201 10^3/uL (150-450); Red Blood Count 4.55 10^6/uL (4.70-6.10); White Blood Count 9.2 10^3/uL (4.0-11.0)
[2025-02-13 06:39] LABS: Anion Gap 13.8; BUN Creatinine Ratio 20.5; Calcium 9.1 mg/dL (8.5-10.1); Carbon Dioxide 24.3 mmol/L (21.0-32.0); Chloride 99 mmol/L (98-107); Estimated GFR (African America >60 (>=60 mL/min/1.73m^2); Estimated GFR (Non-African Ame >60 (>=60 mL/min/1.73m^2); Glucose 105 mg/dL (74-106); Potassium 4.1 mmol/L (3.5-5.1); Sodium 133 mmol/L (136-145)
--- NOTE | 2025-02-13 06:52 | P.DS_ITS ---
DS: Providers Provider Date of admission: 02/12/25 12:06 Primary care physician: Emanuel Johansen MD Consults: 02/12/25 12:53 Consult to Pharmacy Routine Consulting Provider: Reason for consultation: Please [place] me when Med Rec is Updated Has provider been notified: No DS: Diagnosis Discharge Diagnosis (1) Pulmonary embolism: (2) Hypertension: (3) H/O shoulder surgery: Plan Admission findings: Sinus tachycardia, respiratory distress, elevated hypertension, hypoxia with O2 sat of 90%, leukocytosis, hyponatremia all secondary to acute pulmonary embolism mainly affecting the distal right main and segmental and subsegmental portions of the right lung Pulmonary embolism-some tenderness improved faster than anticipated Borderline hypoxia-89% overnight but much improved this morning Hypertension-continue with home medications Left shoulder surgery 3 weeks ago-pain control Admission status: Patient with acute pulmonary embolism without heart strain, hypoxia and tachycardia and uncontrolled hypertension, medically necessary treatment will more than likely span 2 midnights, will start patient off as inpatient status ? DS: Summary Hospital Course Hospital Course: Patient had called the office with increasing pain and shortness of breath, presented to the emergency room and found to have acute right-sided pulmonary embolism, patient started on heparin, transition to Eliquis once heparin was therapeutic, did have some mild hypoxia overnight but overall he feels much improved, the plan is to be ambulates without hypoxia, he did improve much faster than anticipated, he will be discharged home in improving condition. Medications see list. Follow-up with me in the office next week. Patient started off as inpatient secondary to the hypoxia and acute pulmonary embolism, more rapid than expected recovery, maintain inpatient status Time Spent with Patient Time attestation: Total time spent providing and/or coordinating discharge services: Exam Constitutional Vital Signs, click to edit/add: Last Vital Signs Temp 97.0 F L 02/13/25 04:00 Pulse 85 02/13/25 05:54 Resp 18 02/13/25 04:00 BP 137/95 H 02/13/25 04:00 Pulse Ox 92 L 02/13/25 05:54 O2 Del Method Room Air 02/13/25 04:00 Documenting provider has reviewed patient's vital signs: yes Common normals: no apparent distress Chest Common normals: inspection of chest normal and palpation of chest normal Respiratory Common normals: normal respiratory effort and no retractions Cardio Common normals: regular rate, regular rhythm and no murmurs GI Common normals: Normal to inspection, nondistended, normoactive bowel sounds present DS: Data Data Completed and Pending Labs on day of discharge: Labs from last 24 hours 02/13/25 02/12/25 02/12/25 05:56 17:37 13:15 WBC 9.2 RBC 4.55 L Hgb 14.4 Hct 42.0 MCV 92.3 MCH 31.6 MCHC 34.3 RDW 12.0 Plt Count 201 MPV 10.2 Neut % (Auto) 62.8 Lymph % (Auto) 22.1 Island % (Auto) 13.3 H Eos % (Auto) 1.2 Baso % (Auto) 0.4 Neut # (Auto) 5.8 Lymph # (Auto) 2.0 Island # (Auto) 1.2 H Eos # (Auto) 0.1 Baso # (Auto) 0.0 Abs Immat Gran (auto) 0.02 Imm/Tot Granulo (auto) 0.2 PT INR APTT PTT (Heparin Absorb) 60.6 Sodium 133 L Potassium 4.1 Chloride 99 Carbon Dioxide 24.3 Anion Gap 13.8 BUN 17.0 Creatinine 0.83 Est GFR ( Amer) >60 Est GFR (Non-Af Amer) >60 BUN/Creatinine Ratio 20.5 Glucose 105 Lactate 1.0 Calcium 9.1 Total Bilirubin 1.1 H Direct Bilirubin 0.3 H AST 16 ALT 26 Alkaline Phosphatase 47 Troponin I High Sens <4.0 L 4.4 NT-Pro-B Natriuret Pep 12.0 Total Protein 7.4 Albumin 3.8 Globulin 3.6 Albumin/Globulin Ratio 1.1 02/12/25 09:20 WBC 12.3 H RBC 5.09 Hgb 16.1 Hct 47.2 MCV 92.7 MCH 31.6 MCHC 34.1 RDW 12.3 Plt Count 218 MPV 9.7 Neut % (Auto) 75.8 H Lymph % (Auto) 12.3 L Island % (Auto) 10.9 Eos % (Auto) 0.3 L Baso % (Auto) 0.4 Neut # (Auto) 9.3 H Lymph # (Auto) 1.5 Island # (Auto) 1.3 H Eos # (Auto) 0.0 Baso # (Auto) 0.1 Abs Immat Gran (auto) 0.04 H Imm/Tot Granulo (auto) 0.3 PT 10.7 INR 1.01 APTT 30.4 PTT (Heparin Absorb) Sodium 135 L Potassium 4.1 Chloride 100 Carbon Dioxide 27.7 Anion Gap 11.4 BUN 18.0 Creatinine 0.94 Est GFR ( Amer) >60 Est GFR (Non-Af Amer) >60 BUN/Creatinine Ratio 19.1 Glucose 109 H Lactate Calcium 9.7 Total Bilirubin Direct Bilirubin AST ALT Alkaline Phosphatase Troponin I High Sens <4.0 L NT-Pro-B Natriuret Pep Total Protein Albumin Globulin Albumin/Globulin Ratio Discharge Plan Discharge Disposition: Home, Self-Care Condition: Fair Discharge Medications: New Eliquis 5 mg Tablet 10 mg PO BID Qty: 60 11RF Rx Instructions: 5 mg - 2 po BID fo 6 days then 1 po BID Continued irbesartan 150 mg tablet 150 mg PO DAILY Activity: increase activity as tolerated Diet: advance to your usual diet Print Language: Sinhala Patient Instructions: Apixaban (By mouth) (Eliquis), Pulmonary Embolism (DC) Forms: Portal Instructions Follow Up Appointments: Dr Johansen February 18, 2025 @10:45 Discharge Date/Time: 02/13/25 09:39
[2025-02-13] MEDS: LOSARTAN POTASSIUM 50 MG TABLET PO (08:14)
[2025-02-13] MEDS: APIXABAN 5 MG TABLET 10 MG PO (08:14)
--- NOTE | 2025-02-13 08:28 | CM.NOTE ---
Rounds made with Dr. Johansen, pt will discharge to home today. No discharge needs identified.
--- NOTE | 2025-02-13 09:00 | CM.NOTE ---
Discussed with pt about self pay, pt states this case is [employer]- case #[id number] and his rehabilitation caseworker is Tonia [phone]. Pt also provided with 10 dollar co-pay card and free 30 day trial for Eliquis. Pt verbalizes understanding of new medication.
--- NOTE | 2025-02-13 09:37 | PC.NURSE ---
discharge instructions given to pt and . both verbalize understanding. taken to exit via wheelchair with belongings, discharged to private vehicle.
--- NOTE | 2025-02-16 13:22 | CM.DCFOLLOWU ---
Person spoke with:patient How are you feeling? well, tired How is your pain?none Did you understand your discharge instructions?yes Do you have any questions about your discharge instructions?no Were you given any prescriptions at discharge?yes Were you able to get your prescriptions filled?yes Do you understand how to take your medications as ordered?yes Do you have any questions about your follow up appointment and do you plan to keep your follow up appointment? no questions, follow up moved to Is there anything else that you would like to discuss?no Questions/Comments/Concerns/Other: none
== END 2025-02-13 09:39 | disposition home or self-care (01) | DRG 300 ==
LOC: ER 11:05 → MS 12:13
PROVIDERS: Admitting Provider Family Medicine; Emergency Provider Emergency Medicine; PCP Family Medicine; Visit Provider Family Medicine
DX: T81.718A Complication of other artery following a procedure, not elsewhere classified, initial encounter (principal); E87.1 Hypo-osmolality and hyponatremia; I26.99 Other pulmonary embolism without acute cor pulmonale; R09.02 Hypoxemia; Y83.8 Other surgical procedures as the cause of abnormal reaction of the patient, or of later complication, without mention of misadventure at the time of the procedure; I10 Essential (primary) hypertension; Z79.899 Other long term (current) drug therapy; Z88.1 Allergy status to other antibiotic agents; Z88.6 Allergy status to analgesic agent
CPT/HCPCS: 36415; 71045; 71275; 80048; 80076; 83605; 83880; 84484; 85025; 85610; 85730; 93005; 93306; 94667; 94668; 94761; 96365; 96376; 99285; J0360; J1644; Q9967

== ENCOUNTER 2025-09-03 13:46 | Outpatient (RCR) | payer OTHER, SELFPAY | END 2025-10-01 08:35 | disposition home or self-care (01) | LOC: PT 13:46 | PROVIDERS: PCP Family Medicine; Visit Provider Physician Assistant | DX: S46.012D Strain of muscle(s) and tendon(s) of the rotator cuff of left shoulder, subsequent encounter (principal) | CPT/HCPCS: 97110; 97161 ==